=== PATIENT | male | born 1955 | race American Indian/Alaskan Native ===

== ENCOUNTER 2017-07-24 12:00 | Emergency (ER) | payer MEDICAID ==
[2017-07-24 12:51] LABS: Basophils % (Auto) 0.2 % (0.0-1.8); Eosinophils % (Auto) 1.8 % (0.0-4.3); Hematocrit 43.3 % (35.5-45.6); Hemoglobin 14.8 gm/dl (11.8-15.2); Mean Corpuscular HGB Conc 34 % (32-34); Mean Corpuscular Hemoglobin 30 pg (28-32); Mean Corpuscular Volume 88 fl (84-94); Platelet Count 227 K/mm3 (140-440); Red Blood Count 4.94 M/mm3 (3.65-5.03); Red Cell Distribution Width 12.8 % (13.2-15.2); White Blood Count 4.7 K/mm3 (4.5-11.0)
[2017-07-24 12:57] LABS: Anion Gap 19 mmol/L; BUN/Creatinine Ratio 12.85; Blood Urea Nitrogen 9 mg/dL (9-20); Carbon Dioxide 24 mmol/L (22-30); Chloride 92.6 mmol/L (98-107); Sodium 132 mmol/L (137-145)
[2017-07-24 13:18] LABS: Bilirubin,Urine NEG (Negative); Blood,Urine NEG (Negative); Ketones,Urine TR mg/dL (Negative); Leukocyte Esterase,Urine NEG (Negative); Mucus,Urine FEW /HPF; Nitrite,Urine NEG (Negative); Protein,Urine <15 mg/dL mg/dL (Negative); Urobilinogen,Urine < 2.0 mg/dL (<2.0); WBC,Urine < 1.0 /HPF (0.0-6.0)
[2017-07-24 13:21] LABS: Glucose 585 mg/dL (75-100)
[2017-07-24] MEDS ORDERED: NACL 0.9% 1000 ML 1,000 ML IV ONE ×2 (13:53)
--- NOTE | 2017-07-24 15:50 | Emergency Department Report ---
ED General Adult HPI - General Chief complaint: Hyperglycemia Stated complaint: HIGH BLOOD PRESSURE/SENT BY PHYS Time Seen by Provider: 07/24/17 13:52 Source: patient Mode of arrival: Ambulatory Limitations: No Limitations - History of Present Illness Initial comments: 61-year-old male with a past medical history CVA 2 and hypertension presents to the hospital with hypoglycemia secondary to new onset diabetes. Patient was referred to the ER for evaluation by his PMD Dr. Alfredo. Apparently his glucose was in the 700s prior to arrival. Patient received subcutaneous insulin prior to arrival was sent to the hospital for IV hydration and further treatment. Patient complains of polyuria increased thirst. He c/o mild diarrhea. No vomiting reported. No fever reported. Patient denies dysuria.ld not a Gatorade , Powerade, and water. He reports "stomach virus" symptoms 2 weeks ago that included cramps, low-grade temperature, and occasio - Related Data Home Medications Medication Instructions Recorded Confirmed Last Taken Baclofen 20 mg PO BID 02/26/16 03/04/16 03/03/16 Carvedilol [Coreg] 12.5 mg PO BID 02/26/16 03/04/16 03/03/16 Hydrochlorothiazide [Hctz] 12.5 mg PO QDAY 02/26/16 03/04/16 03/03/16 Lisinopril [Zestril] 20 mg PO QDAY 02/26/16 03/04/16 03/04/16 05:00 Sertraline [Zoloft] 50 mg PO QHS 02/26/16 03/04/16 03/03/16 Aspirin [Aspirin TAB] 325 mg PO QDAY 03/04/16 03/04/16 02/26/16 Warfarin [Coumadin] 2 mg PO BID 03/04/16 03/04/16 02/26/16 Previous Rx's Medication Instructions Recorded Last Taken Type HYDROcodone/APAP 10-325 [[place] 1 each PO Q6HR PRN #20 tablet 11/14/15 03/03/16 Rx 10/325] Allergies Allergy/AdvReac Type Severity Reaction Status Date / Time No Known Allergies Allergy Verified 07/24/17 12:17 ED Review of Systems ROS: Stated complaint: HIGH BLOOD PRESSURE/SENT BY PHYS Other details as noted in HPI Comment: All other systems reviewed and negative Other: Constitutional: No fevers chills Eyes: No eye pain visual changes ENT: No ear pain or throat pain Neck: Denies pain Respiratory: Denies cough wheezing shortness of breath Cardiovascular: Denies chest pain, palpitations, syncope GI: Denies abdominal pain, nausea, vomiting, diarrhea : as per hpi Musculoskeletal: Denies back pain, joint swelling Skin: Denies rash, lesions, erythema Neurologic: Denies headache, numbness, weakness Psychiatric: Denies suicidal ideation, hallucinations ED Past Medical Hx - Past Medical History Hx Hypertension: Yes Hx CVA: Yes (x2) Hx Heart Attack/AMI: No Hx GERD: No Hx Liver Disease: No Hx Renal Disease: No Hx Seizures: No Hx HIV: No - Surgical History Additional Surgical History: R Rotator cuff - Social History Smoking Status: Former Smoker Substance Use Type: None - Medications Home Medications: Home Medications Medication Instructions Recorded Confirmed Last Taken Type HYDROcodone/APAP 10-325 [[place] 1 each PO Q6HR PRN #20 tablet 11/14/15 03/04/16 03/03/16 Rx 10/325] Baclofen 20 mg PO BID 02/26/16 03/04/16 03/03/16 History Carvedilol [Coreg] 12.5 mg PO BID 02/26/16 03/04/16 03/03/16 History Hydrochlorothiazide [Hctz] 12.5 mg PO QDAY 02/26/16 03/04/16 03/03/16 History Lisinopril [Zestril] 20 mg PO QDAY 02/26/16 03/04/16 03/04/16 05:00 History Sertraline [Zoloft] 50 mg PO QHS 02/26/16 03/04/16 03/03/16 History Aspirin [Aspirin TAB] 325 mg PO QDAY 03/04/16 03/04/16 02/26/16 History Warfarin [Coumadin] 2 mg PO BID 03/04/16 03/04/16 02/26/16 History ED Physical Exam - General Limitations: No Limitations - Other Other exam information: General: No limitations, patient is alert in no acute distress Head exam: Atraumatic, normocephalic Eyes exam: Normal appearance, pupils equal reactive to light, extraocular movements intact ENT: Moist mucous membrane, normal oropharynx Neck exam: Normal inspection, full range of motion, no meningismus nontender Respiratory exam: Clear to auscultation bilateral, no wheezes, rales, crackles Cardiovascular: Normal rate and rhythm, normal heart sounds Abdomen: Soft, nondistended, and nontender, with normal bowel sounds, no rebound, or guarding Extremity: Full range of motion normal inspection no deformity Back: Normal Inspection, full range of motion, no tenderness Neurologic: Alert, oriented x3, cranial nerves intact, no motor or sensory deficit Psychiatric: normal affect, normal mood Skin: Warm, dry, intact ED Course Vital Signs 07/24/17 12:17 Temperature 98 F Pulse Rate 68 Respiratory 18 Rate Blood Pressure 124/88 O2 Sat by Pulse 100 Oximetry - Reevaluation(s) Reevaluation #1: 07/24/17 15:52 Patient received regular insulin 8 units and normal saline with reduction in blood pressures in the 120s. Patient given fluids E in additional 1 L initiated - Consultations Consultation #1: 07/24/17 Case d/w Dr Alfredo. He confirms that insulin was given prior to arrival (pt denies this). He also confirms that he has a prescription called into the patient's pharmacy for sliding-scale insulin, testing strips, and glucometer, and wants to see the patient in the office next week. ED Medical Decision Making - Lab Data Result diagrams: 07/24/17 12:28 07/24/17 12:28 Lab Results 07/24/17 07/24/17 07/24/17 Range/Units 12:28 12:28 12:28 WBC 4.7 (4.5-11.0) K/mm3 RBC 4.94 (3.65-5.03) M/mm3 Hgb 14.8 (11.8-15.2) gm/dl Hct 43.3 (35.5-45.6) % MCV 88 (84-94) fl MCH 30 (28-32) pg MCHC 34 (32-34) % RDW 12.8 L (13.2-15.2) % Plt Count 227 (140-440) K/mm3 Lymph % (Auto) 38.5 H (13.4-35.0) % [place] % (Auto) 7.9 H (0.0-7.3) % Eos % (Auto) 1.8 (0.0-4.3) % Baso % (Auto) 0.2 (0.0-1.8) % Lymph # 1.8 (1.2-5.4) K/mm3 [place] # 0.4 (0.0-0.8) K/mm3 Eos # 0.1 (0.0-0.4) K/mm3 Baso # 0.0 (0.0-0.1) K/mm3 Seg Neutrophils % 51.6 (40.0-70.0) % Seg Neutrophils # 2.4 (1.8-7.7) K/mm3 VBG pH 7.382 (7.320-7.420) Sodium 132 L (137-145) mmol/L Potassium 4.0 (3.6-5.0) mmol/L Chloride 92.6 L (98-107) mmol/L Carbon Dioxide 24 (22-30) mmol/L Anion Gap 19 mmol/L BUN 9 (9-20) mg/dL Creatinine 0.7 L (0.8-1.5) mg/dL Estimated GFR > 60 ml/min BUN/Creatinine Ratio 12.85 % Glucose 585 H* (75-100) mg/dL POC Glucose (70-105) Calcium 10.0 (8.4-10.2) mg/dL Urine Color (Yellow) Urine Turbidity (Clear) Urine pH (5.0-7.0) Ur Specific [place] (1.003-1.030) Urine Protein (Negative) mg/dL Urine Glucose (UA) (Negative) mg/dL Urine Ketones (Negative) mg/dL Urine Blood (Negative) Urine Nitrite (Negative) Urine Bilirubin (Negative) Urine Urobilinogen (<2.0) mg/dL Ur Leukocyte Esterase (Negative) Urine WBC (Auto) (0.0-6.0) /HPF Urine RBC (Auto) (0.0-6.0) /HPF Urine Mucus /HPF 07/24/17 07/24/17 07/24/17 Range/Units 13:07 14:03 15:14 WBC (4.5-11.0) K/mm3 RBC (3.65-5.03) M/mm3 Hgb (11.8-15.2) gm/dl Hct (35.5-45.6) % MCV (84-94) fl MCH (28-32) pg MCHC (32-34) % RDW (13.2-15.2) % Plt Count (140-440) K/mm3 Lymph % (Auto) (13.4-35.0) % [place] % (Auto) (0.0-7.3) % Eos % (Auto) (0.0-4.3) % Baso % (Auto) (0.0-1.8) % Lymph # (1.2-5.4) K/mm3 [place] # (0.0-0.8) K/mm3 Eos # (0.0-0.4) K/mm3 Baso # (0.0-0.1) K/mm3 Seg Neutrophils % (40.0-70.0) % Seg Neutrophils # (1.8-7.7) K/mm3 VBG pH (7.320-7.420) Sodium (137-145) mmol/L Potassium (3.6-5.0) mmol/L Chloride (98-107) mmol/L Carbon Dioxide (22-30) mmol/L Anion Gap mmol/L BUN (9-20) mg/dL Creatinine (0.8-1.5) mg/dL Estimated GFR ml/min BUN/Creatinine Ratio % Glucose (75-100) mg/dL POC Glucose 492 H 127 H (70-105) Calcium (8.4-10.2) mg/dL Urine Color Straw (Yellow) Urine Turbidity Clear (Clear) Urine pH 6.0 (5.0-7.0) Ur Specific [place] 1.033 H (1.003-1.030) Urine Protein <15 mg/dl (Negative) mg/dL Urine Glucose (UA) >=500 (Negative) mg/dL Urine Ketones Tr (Negative) mg/dL Urine Blood Neg (Negative) Urine Nitrite Neg (Negative) Urine Bilirubin Neg (Negative) Urine Urobilinogen < 2.0 (<2.0) mg/dL Ur Leukocyte Esterase Neg (Negative) Urine WBC (Auto) < 1.0 (0.0-6.0) /HPF Urine RBC (Auto) 1.0 (0.0-6.0) /HPF Urine Mucus Few /HPF - Medical Decision Making Patient has hyperglycemia without signs of DKA. Diagnoses nausea diabetes. That has already called in insulin script for the patient and wants to see the patient in the office again next week. Patient should be discharged once no [place] completed and glucose still within reasonable range less than 250 - Differential Diagnosis DKA, hyperglycemia, infection Critical Care Time: No Critical care attestation.: If time is entered above; I have spent that time in minutes in the direct care of this critically ill patient, excluding procedure time. ED Disposition Clinical Impression: Hyperglycemia, New onset type 2 diabetes mellitus Disposition: TO HOME OR SELFCARE Is pt being admited?: No Does the pt Need Aspirin: No Condition: Stable Instructions: Diabetes Mellitus Type 2 in Adults (ED) Additional Instructions: Continue to drink plenty of water. Avoid drinking liquids with sugar. Fill your prescription as prescribed by Dr. Alfredo. Return is symptoms worsen. Referrals: TYLER ALFREDO MD [Staff Physician] - 3-5 Days
[2017-07-24 16:33] VITALS: BP 100/64
== END 2017-07-24 16:27 | disposition home or self-care (01) ==
LOC: ED 12:00
DX: E11.65 Type 2 diabetes mellitus with hyperglycemia (principal); I10 Essential (primary) hypertension; Z86.73 Personal history of transient ischemic attack (TIA), and cerebral infarction without residual deficits; Z87.891 Personal history of nicotine dependence
CPT/HCPCS: 36415; 80048; 81001; 82805; 82962; 85025; 96361; 96374; 99284; J7030; J1815

== ENCOUNTER 2017-08-28 11:21 | Inpatient (IN) | payer MEDICAID ==
[2017-08-28] MEDS ORDERED: NACL 0.9% 1000 ML 1,000 ML IV ONE ×3 (11:59→14:33)
[2017-08-28] MEDS ORDERED: ZOFRAN IV ONE (12:00)
--- NOTE | 2017-08-28 12:04 | Emergency Department Report ---
ED General Adult HPI - General Chief complaint: Hyperglycemia Stated complaint: BLOOD PRESSURE HIGH Time Seen by Provider: 08/28/17 11:51 Source: patient Mode of arrival: Wheelchair Limitations: No Limitations - History of Present Illness Initial comments: Patient is 61 years old male recently diagnosed with diabetes this is his second visit this week for the same reason which is hyperglycemia nausea and vomiting. Patient was discharged from the ER with a prescription for insulin but patient stated that he is unable to fill his prescription because he does not have insurance. Patient stated that he does not much he doesn't know how much his blood sugar is high that he is having nausea vomiting no diarrhea this time. Denied any fever, chest pain, shortness of breath ,abdominal pain , weakness, numbness or tingling sensation. - Related Data Home Medications Medication Instructions Recorded Confirmed Last Taken Baclofen 20 mg PO BID 02/26/16 03/04/16 03/03/16 Carvedilol [Coreg] 12.5 mg PO BID 02/26/16 03/04/16 03/03/16 Hydrochlorothiazide [Hctz] 12.5 mg PO QDAY 02/26/16 03/04/16 03/03/16 Lisinopril [Zestril] 20 mg PO QDAY 02/26/16 03/04/16 03/04/16 05:00 Sertraline [Zoloft] 50 mg PO QHS 02/26/16 03/04/16 03/03/16 Aspirin [Aspirin TAB] 325 mg PO QDAY 03/04/16 03/04/16 02/26/16 Warfarin [Coumadin] 2 mg PO BID 03/04/16 03/04/16 02/26/16 Previous Rx's Medication Instructions Recorded Last Taken Type HYDROcodone/APAP 10-325 [[place] 1 each PO Q6HR PRN #20 tablet 11/14/15 03/03/16 Rx 10/325] Allergies Allergy/AdvReac Type Severity Reaction Status Date / Time No Known Allergies Allergy Verified 07/24/17 12:17 ED Review of Systems ROS: Stated complaint: BLOOD PRESSURE HIGH Other details as noted in HPI Comment: All other systems reviewed and negative Constitutional: denies: chills, fever Respiratory: denies: cough, shortness of breath, SOB with exertion Cardiovascular: denies: chest pain, palpitations Gastrointestinal: nausea, vomiting. denies: abdominal pain, diarrhea, hematemesis, melena, hematochezia Neurological: denies: headache, numbness, paresthesias ED Past Medical Hx - Past Medical History Previous Medical History?: Yes Hx Hypertension: Yes Hx CVA: Yes (x2) Hx Heart Attack/AMI: No Hx GERD: No Hx Liver Disease: No Hx Renal Disease: No Hx Seizures: No Hx HIV: No - Surgical History Past Surgical History?: Yes Additional Surgical History: R Rotator cuff - Social History Smoking Status: Never Smoker Substance Use Type: None - Medications Home Medications: Home Medications Medication Instructions Recorded Confirmed Last Taken Type HYDROcodone/APAP 10-325 [[place] 1 each PO Q6HR PRN #20 tablet 11/14/15 03/04/16 03/03/16 Rx 10/325] Baclofen 20 mg PO BID 02/26/16 03/04/16 03/03/16 History Carvedilol [Coreg] 12.5 mg PO BID 02/26/16 03/04/16 03/03/16 History Hydrochlorothiazide [Hctz] 12.5 mg PO QDAY 02/26/16 03/04/16 03/03/16 History Lisinopril [Zestril] 20 mg PO QDAY 02/26/16 03/04/16 03/04/16 05:00 History Sertraline [Zoloft] 50 mg PO QHS 02/26/16 03/04/16 03/03/16 History Aspirin [Aspirin TAB] 325 mg PO QDAY 03/04/16 03/04/16 02/26/16 History Warfarin [Coumadin] 2 mg PO BID 03/04/16 03/04/16 02/26/16 History ED Physical Exam - General Limitations: No Limitations General appearance: alert, in no apparent distress - Head Head exam: Present: normocephalic - Eye Eye exam: Present: normal appearance - ENT ENT exam: Present: mucous membranes dry, TM's normal bilaterally - Neck Neck exam: Present: normal inspection, full ROM. Absent: tenderness, meningismus, lymphadenopathy - Respiratory Respiratory exam: Present: normal lung sounds bilaterally. Absent: respiratory distress, wheezes, rales, rhonchi, stridor, chest wall tenderness, accessory muscle use, decreased breath sounds, prolonged expiratory - Cardiovascular Cardiovascular Exam: Present: regular rate, normal rhythm, normal heart sounds - GI/Abdominal GI/Abdominal exam: Present: soft, normal bowel sounds. Absent: tenderness, guarding, rebound, rigid, organomegaly, mass, bruit, pulsatile mass, hernia - Extremities Exam Extremities exam: Present: normal inspection - Back Exam Back exam: Present: normal inspection. Absent: tenderness, CVA tenderness (R), CVA tenderness (L) - Neurological Exam Neurological exam: Present: alert, oriented X3, CN II-XII intact, normal gait. Absent: abnormal gait, motor sensory deficit - Skin Skin exam: Present: warm, dry, intact ED Course Vital Signs 08/28/17 08/28/17 08/28/17 11:30 12:55 13:08 Temperature 97.6 F Pulse Rate 85 Respiratory 20 18 Rate Blood Pressure 82/44 O2 Sat by Pulse 98 99 100 Oximetry - Reevaluation(s) Reevaluation #1: 08/28/17 13:00 Patient stated that he is feeling better after the fluids. ED Medical Decision Making - Lab Data Result diagrams: 08/28/17 11:50 08/28/17 11:50 - EKG Data -: EKG Interpreted by Oh EKG shows normal: sinus rhythm Rate: normal - EKG Data 08/28/17 13:11 RBBB - Radiology Data Radiology results: report reviewed Chest x-ray unremarkable - Medical Decision Making Discussed the patient is Dr. Townsend who agreed to admit to his service Critical care attestation.: If time is entered above; I have spent that time in minutes in the direct care of this critically ill patient, excluding procedure time. ED Disposition Clinical Impression: Hyperglycemia, Hyponatremia, Intractable vomiting with nausea Disposition: OP ADMIT IP TO THIS HOSP Is pt being admited?: Yes Condition: Stable Referrals: PRIMARY CARE, [Primary Care Provider] - 3-5 Days
[2017-08-28 12:18] LABS: Basophils % (Auto) 1.8 % (0.0-1.8); Eosinophils % (Auto) 2.5 % (0.0-4.3); Hemoglobin 14.2 gm/dl (11.8-15.2); Mean Corpuscular HGB Conc 34 % (32-34); Mean Corpuscular Hemoglobin 30 pg (28-32); Mean Corpuscular Volume 90 fl (84-94); Platelet Count 225 K/mm3 (140-440); Red Blood Count 4.67 M/mm3 (3.65-5.03); Red Cell Distribution Width 12.9 % (13.2-15.2)
--- NOTE | 2017-08-28 12:18 | XRay Report ---
PORTABLE CHEST: Chest pain. An AP portable view of the chest demonstrates a normal cardiac contour considering the limits of this technique. The lungs are clear with no evidence of infiltrate, fluid or failure. IMPRESSION: Normal portable chest.
[2017-08-28 12:33] LABS: Calcium 9.2 mg/dL (8.4-10.2); Chloride 77.6 mmol/L (98-107); Potassium 5.1 mmol/L (3.6-5.0)
[2017-08-28 13:26] LABS: Bilirubin,Urine NEG (Negative); Blood,Urine NEG (Negative); Ketones,Urine TR mg/dL (Negative); Leukocyte Esterase,Urine NEG (Negative); Mucus,Urine FEW /HPF; Nitrite,Urine NEG (Negative); Protein,Urine <15 mg/dL mg/dL (Negative); Urobilinogen,Urine < 2.0 mg/dL (<2.0)
[2017-08-28 13:55] LABS: Albumin 3.9 g/dL (3.9-5); Albumin/Globulin Ratio 1.2 %; Bilirubin,Direct 0.2 mg/dL (0-0.2); Bilirubin,Indirect 0.8 mg/dL; Total Protein 7.2 g/dL (6.3-8.2)
[2017-08-28] MEDS ORDERED: NACL 0.9% 1000 ML 1,000 ML ONE (13:58)
[2017-08-28] MEDS: NACL 0.9% 1000 ML 1,000 ML IV SCH (15:56)
[2017-08-28 18:13] LABS: Calcium 8.5 mg/dL (8.4-10.2); Chloride 92.8 mmol/L (98-107); Potassium 4.5 mmol/L (3.6-5.0)
[2017-08-28] MEDS ORDERED: NACL 0.9% 1000 ML 1,000 ML IV SCH (19:00)
[2017-08-28] MEDS ORDERED: ZOFRAN ODT ONE (19:25)
[2017-08-28] MEDS ORDERED: ZOFRAN ODT PO ONE (19:39)
--- NOTE | 2017-08-28 19:47 | History and Physical Report ---
History of Present Illness Date of examination: 08/28/17 Date of admission: 08/28/17 13:02 Chief complaint: Chief complaint: Feeling very weak and nauseous for one week. History of present illness: History of present illness: 61-year-old -British male with past medical history of hypertension depression and recently diagnosed diabetes about a month ago comes in for feeling very weak and nauseous. Also his blood sugars have been running high in the range of 300-400. Patient was asked to fill her prescription by his PCP and because the prescription being expensive patient could not fill it. Patient was trying to control his diabetes with diet. Says that blood sugars dropped to around 180 and then again started creeping up to around 400 recently. Patient was seen in the ER and discharged. Patient does not know the name of the hypoglycemics and was put on. Feels weak and nauseous. No fever no chills. Slight shortness of breath present. Blurring of vision present. No dysuria. No recent travel. No chest pain. No abdominal pain. Review of System: Constitutional: no fever, no chills, no weight loss feels weak and nauseous. Ears, eyes, nose, mouth and throat: no nasal congestion, no nasal discharge, no sinus pressure, no vision change, no red eye. Neck: No neck pain or rigidity. Cardiovascular: No chest pain, no orthopnea, no palpitations, no leg swelling Respiratory: No shortness of breath, no cough, no congestion, no wheezing Gastrointestinal: no abdominal pain, nausea present, no vomiting Genitourinary : no dysuria, no hematuria or polyuria polydipsia and polyphagia present. Musculoskeletal: no joint swelling or muscle ache Integumentary: no rash, no pruritis Neurological: no parathesias, no numbness, no tingling Endocrine: no cold or heat intolerance, no polyuria or polydipsia Hematologic/Lymphatic: no easy bruising, no easy bleeding, no gland swelling Allergic/Immunologic: no urticaria, no angioedema. Past History Past Medical History: diabetes, hypertension, hyperlipidemia, stroke (with complete recovery) Past Surgical History: No surgical history Social history: no significant social history, lives with family, full code Family history: diabetes, hypertension Medications and Allergies Allergies Allergy/AdvReac Type Severity Reaction Status Date / Time No Known Allergies Allergy Verified 07/24/17 12:17 Home Medications Medication Instructions Recorded Confirmed Last Taken Type HYDROcodone/APAP 10-325 [[place] 1 each PO Q6HR PRN #20 tablet 11/14/15 08/28/17 03/03/16 Rx 10/325] Carvedilol [Coreg] 12.5 mg PO BID 02/26/16 08/28/17 08/28/17 History Hydrochlorothiazide [Hctz] 12.5 mg PO QDAY 02/26/16 08/28/17 08/28/17 History Lisinopril [Zestril] 20 mg PO QDAY 02/26/16 08/28/17 08/28/17 History Sertraline [Zoloft] 50 mg PO QHS 02/26/16 08/28/17 08/27/17 History Aspirin [Aspirin TAB] 325 mg PO QDAY 03/04/16 08/28/17 08/28/17 History Warfarin [Coumadin] 2 mg PO BID 03/04/16 08/28/17 08/28/17 History Active Meds: Active Medications Sodium Chloride (Nacl 0.9% 1000 Ml) 1,000 mls @ 150 mls/hr IV DIRECT DOMINGO Last Admin: 08/28/17 15:56 Dose: 150 mls/hr Sodium Chloride (Nacl 0.9% 1000 Ml) 1,000 mls @ 250 mls/hr IV DIRECT DOMINGO Review of Systems All systems: negative Exam - Physical Exam Narrative exam: Lying in bed comfortably - Constitutional Vitals: Temp Pulse Resp BP Pulse Ox 98 F 66 18 90/46 100 08/28/17 19:40 08/28/17 19:40 08/28/17 19:40 08/28/17 19:40 08/28/17 19:40 General appearance: Present: no acute distress, well-nourished - EENT Eyes: Present: PERRL ENT: hearing intact, clear oral mucosa - Neck Neck: Present: supple, normal ROM - Respiratory Respiratory effort: normal Respiratory: bilateral: CTA - Cardiovascular Heart rate: 80 Rhythm: regular (88) Heart Sounds: Present: S1 & S2. Absent: rub, click - Extremities Extremities: pulses symmetrical, No edema Peripheral Pulses: within normal limits - Abdominal General gastrointestinal: Present: soft, non-tender, non-distended, normal bowel sounds Male genitourinary: Present: normal. Absent: right inguinal hernia, left inguinal hernia - Rectal Rectal Exam: stool brown - Integumentary Integumentary: Present: clear, warm, dry - Musculoskeletal Musculoskeletal: gait normal, strength equal bilaterally - Psychiatric Psychiatric: appropriate mood/affect, intact judgment & insight - Neurologic Neurologic: CNII-XII intact, moves all extremities - Allied Health Allied health notes reviewed: nursing, case management Results - Labs CBC & Chem 7: 08/28/17 11:50 08/28/17 17:50 Labs: Laboratory Last Values WBC 8.0 K/mm3 (4.5-11.0) 08/28/17 11:50 RBC 4.67 M/mm3 (3.65-5.03) 08/28/17 11:50 Hgb 14.2 gm/dl (11.8-15.2) 08/28/17 11:50 Hct 42.0 % (35.5-45.6) 08/28/17 11:50 MCV 90 fl (84-94) 08/28/17 11:50 MCH 30 pg (28-32) 08/28/17 11:50 MCHC 34 % (32-34) 08/28/17 11:50 RDW 12.9 % (13.2-15.2) L 08/28/17 11:50 Plt Count 225 K/mm3 (140-440) 08/28/17 11:50 Lymph % (Auto) 21.5 % (13.4-35.0) 08/28/17 11:50 [place] % (Auto) 8.2 % (0.0-7.3) H 08/28/17 11:50 Eos % (Auto) 2.5 % (0.0-4.3) 08/28/17 11:50 Baso % (Auto) 1.8 % (0.0-1.8) 08/28/17 11:50 Lymph # 1.7 K/mm3 (1.2-5.4) 08/28/17 11:50 [place] # 0.7 K/mm3 (0.0-0.8) 08/28/17 11:50 Eos # 0.2 K/mm3 (0.0-0.4) 08/28/17 11:50 Baso # 0.1 K/mm3 (0.0-0.1) 08/28/17 11:50 Seg Neutrophils % 66.0 % (40.0-70.0) 08/28/17 11:50 Seg Neutrophils # 5.3 K/mm3 (1.8-7.7) 08/28/17 11:50 VBG pH 7.351 (7.320-7.420) 08/28/17 11:50 Sodium 131 mmol/L (137-145) L D 08/28/17 17:50 Potassium 4.5 mmol/L (3.6-5.0) 08/28/17 17:50 Chloride 92.8 mmol/L (98-107) L 08/28/17 17:50 Carbon Dioxide 22 mmol/L (22-30) 08/28/17 17:50 Anion Gap 21 mmol/L 08/28/17 17:50 BUN 30 mg/dL (9-20) H 08/28/17 17:50 Creatinine 1.9 mg/dL (0.8-1.5) H 08/28/17 17:50 Estimated GFR 44 ml/min 08/28/17 17:50 BUN/Creatinine Ratio 16 % 08/28/17 17:50 Glucose 164 mg/dL (75-100) H 08/28/17 17:50 POC Glucose > 500 (70-105) H 08/28/17 11:30 Calcium 8.5 mg/dL (8.4-10.2) 08/28/17 17:50 Total Bilirubin 1.00 mg/dL (0.1-1.2) 08/28/17 12:01 Direct Bilirubin 0.2 mg/dL (0-0.2) 08/28/17 12:01 Indirect Bilirubin 0.8 mg/dL 08/28/17 12:01 AST 16 units/L (5-40) 08/28/17 12:01 ALT 15 units/L (7-56) 08/28/17 12:01 Alkaline Phosphatase 86 units/L (35-129) 08/28/17 12:01 Troponin T 0.021 ng/mL (0.00-0.029) 08/28/17 12:01 Total Protein 7.2 g/dL (6.3-8.2) 08/28/17 12:01 Albumin 3.9 g/dL (3.9-5) 08/28/17 12:01 Albumin/Globulin Ratio 1.2 % 08/28/17 12:01 Urine Color Yellow (Yellow) 08/28/17 12:10 Urine Turbidity Clear (Clear) 08/28/17 12:10 Urine pH 5.0 (5.0-7.0) 08/28/17 12:10 Ur Specific [place] 1.022 (1.003-1.030) 08/28/17 12:10 Urine Protein <15 mg/dl mg/dL (Negative) 08/28/17 12:10 Urine Glucose (UA) >=500 mg/dL (Negative) 08/28/17 12:10 Urine Ketones Tr mg/dL (Negative) 08/28/17 12:10 Urine Blood Neg (Negative) 08/28/17 12:10 Urine Nitrite Neg (Negative) 08/28/17 12:10 Urine Bilirubin Neg (Negative) 08/28/17 12:10 Urine Urobilinogen < 2.0 mg/dL (<2.0) 08/28/17 12:10 Ur Leukocyte Esterase Neg (Negative) 08/28/17 12:10 Urine WBC (Auto) 1.0 /HPF (0.0-6.0) 08/28/17 12:10 Urine RBC (Auto) 3.0 /HPF (0.0-6.0) 08/28/17 12:10 Urine Mucus Few /HPF 08/28/17 12:10 Short CBC 08/28/17 Range/Units 11:50 WBC 8.0 (4.5-11.0) K/mm3 Hgb 14.2 (11.8-15.2) gm/dl Hct 42.0 (35.5-45.6) % Plt Count 225 (140-440) K/mm3 BMP 08/28/17 08/28/17 11:50 17:50 Sodium 119 L* 131 L D Potassium 5.1 H 4.5 Chloride 77.6 L 92.8 L Carbon Dioxide 22 22 BUN 34 H 30 H Creatinine 2.4 H 1.9 H Glucose 713 H* 164 H Calcium 9.2 8.5 Cardiac Enzymes 08/28/17 Range/Units 12:01 Troponin T 0.021 (0.00-0.029) ng/mL Liver Function 08/28/17 Range/Units 12:01 Total Bilirubin 1.00 (0.1-1.2) mg/dL Direct Bilirubin 0.2 (0-0.2) mg/dL AST 16 (5-40) units/L ALT 15 (7-56) units/L Alkaline Phosphatase 86 (35-129) units/L Albumin 3.9 (3.9-5) g/dL Urine 08/28/17 Range/Units 12:10 Urine Color Yellow (Yellow) Urine pH 5.0 (5.0-7.0) Ur Specific [place] 1.022 (1.003-1.030) Urine Protein <15 mg/dl (Negative) mg/dL Urine Glucose (UA) >=500 (Negative) mg/dL - Imaging and Cardiology EKG: report reviewed (normal portable chest x-ray) Assessment and Plan Advance Directives: Yes (full code) VTE prophylaxis?: Chemical Plan of care discussed with patient/family: Yes - Patient Problems (1) Diabetic hyperosmolar non-ketotic state Current Visit: Yes Status: Acute Plan to address problem: Patient was diagnosed one month ago and was started on oral hypoglycemics. Patient may have been started on expensive old hypoglycemics like DPP 4 inhibitor or SGLT like Invokana/Farxiga and patient could not afford it and hence not taking them. We will start him on glimepiride which is not expensive and metformin if Creatinine is normal at the time of discharge. If the sugars are not controlled we will add nighttime insulin like Lantus at 20 units subcutaneous daily at bedtime. Also diabetes teaching initiated. Dietary consult requested. HbA1c ordered. Patient to follow-up with the PCP Dr. Zhao on a regular basis. Walking on a regular basis which helps his diabetes. Patient counseled. IV fluids and frequent monitoring of Accu-Cheks with moderate dose sliding scale coverage for the time being. (2) Acute kidney injury Current Visit: Yes Status: Acute Plan to address problem: His BUN/creatinine is 34 and 2.4. Has come down to 30 and 1.9 on the same day with IV fluids. Probably acute tubular necrosis versus possible vasomotor nephropathy. Keep checking BUN/creatinine. Metformin to be initiated if her creatinine is normal. (3) Intractable vomiting with nausea Current Visit: Yes Status: Acute Qualifiers: Vomiting type: unspecified Qualified Code(s): R11.2 - Nausea with vomiting , unspecified Plan to address problem: Symptomatic treatment with IV Zofran and also IV fluids. Should improve with the improving blood glucose levels (4) Hyponatremia Current Visit: Yes Status: Acute Plan to address problem: Hyponatremia secondary to blood glucose levels of 700. Should correct with correction of blood glucose and IV fluids. Patient started on IV normal saline. (5) Hypertension Current Visit: Yes Status: Chronic Qualifiers: Hypertension type: essential hypertension Qualified Code(s): I10 - Essential (primary) hypertension Plan to address problem: Patient to continue Coreg and lisinopril. Blood pressure was low initially in the ER which is corrected with IV fluids. We will hold the blood pressure medicines for one day. (6) Depression Current Visit: Yes Status: Chronic Qualifiers: Depression Type: D Major depression recurrence: M Active/Remission status : A Major depression episode severity: moderate Psychotic features: P Trimester: T Plan to address problem: Continue sertraline 50 mg by mouth daily at bedtime (7) Anticoagulation management encounter Current Visit: Yes Status: Chronic Plan to address problem: Patient on Coumadin 2 mg twice a day. Patient does not know the reason. Called his sister were could not get in touch with her after [phone]. We' ll try to call her tomorrow again and find out why she is on his on Coumadin. Patient has a history of stroke from which is recovered completely. Mainly is using Coumadin for stroke. We will change it to aspirin 325 mg once a day at time of discharge. All Plavix 75 mg once a day. (8) DVT prophylaxis Current Visit: Yes Status: Acute Plan to address problem: Patient initiated on Lovenox 40 mg subcutaneous daily
[2017-08-28] MEDS ORDERED: NORCO 10/325 PO PRN (19:53)
[2017-08-28] MEDS ORDERED: TYLENOL PO PRN (19:54)
[2017-08-28] MEDS ORDERED: MILK OF MAGNESIA PO PRN (19:54)
[2017-08-28] MEDS ORDERED: ZOFRAN IV PRN (19:54)
[2017-08-28] MEDS ORDERED: DILAUDID IV PRN (19:54)
[2017-08-28] MEDS ORDERED: DULCOLAX PR PRN (19:54)
[2017-08-28] MEDS: NOVOLOG SUB-Q SCH ×2 (22:00→22:42)
[2017-08-28] MEDS: PEPCID IV SCH (22:30)
[2017-08-28] MEDS: ASPIRIN PO SCH (22:30)
[2017-08-28] MEDS: ZOLOFT PO SCH (22:30)
[2017-08-28] MEDS: LEVEMIR SUB-Q SCH (22:31)
[2017-08-28] MEDS: HEPARIN SUB-Q SCH (22:31)
[2017-08-28] MEDS: COREG PO SCH (22:42)
[2017-08-29] MEDS: NACL 0.9% 1000 ML 1,000 ML IV SCH ×2 (01:51→06:46)
[2017-08-29 05:34] LABS: Basophils % (Auto) 1.1 % (0.0-1.8); Eosinophils % (Auto) 3.7 % (0.0-4.3); Hemoglobin 12.4 gm/dl (11.8-15.2); Mean Corpuscular HGB Conc 36 % (32-34); Mean Corpuscular Hemoglobin 31 pg (28-32); Mean Corpuscular Volume 86 fl (84-94); Platelet Count 189 K/mm3 (140-440); Red Blood Count 4.05 M/mm3 (3.65-5.03); Red Cell Distribution Width 12.6 % (13.2-15.2); White Blood Count 7.1 K/mm3 (4.5-11.0)
[2017-08-29 05:44] LABS: Alanine Aminotransferase 12 units/L (7-56); Albumin 3.3 g/dL (3.9-5); Albumin/Globulin Ratio 1.2 %; Alkaline Phosphatase 62 units/L (35-129); Anion Gap 19 mmol/L; BUN/Creatinine Ratio 18; Blood Urea Nitrogen 24 mg/dL (9-20); Calcium 8.4 mg/dL (8.4-10.2); Carbon Dioxide 21 mmol/L (22-30); Glucose 164 mg/dL (75-100); Potassium 4.2 mmol/L (3.6-5.0); Sodium 133 mmol/L (137-145); Total Protein 6.1 g/dL (6.3-8.2)
[2017-08-29] MEDS: NOVOLOG SUB-Q SCH ×6 (06:44→21:42)
[2017-08-29] MEDS: HEPARIN SUB-Q SCH ×2 (10:00→21:43)
[2017-08-29] MEDS: ASPIRIN PO SCH (10:28)
[2017-08-29] MEDS: ZESTRIL PO SCH (10:28)
[2017-08-29] MEDS: COREG PO SCH ×2 (10:28→23:00)
[2017-08-29] MEDS: HCTZ PO SCH (10:29)
[2017-08-29] MEDS: PEPCID IV SCH ×2 (10:29→21:40)
[2017-08-29] MEDS: AMARYL PO SCH (10:35)
--- NOTE | 2017-08-29 10:48 | Progress Note ---
Assessment and Plan Assessment and plan: History of present illness: 61-year-old -[place] male with past medical history of hypertension depression and recently diagnosed diabetes about a month ago comes in for feeling very weak and nauseous. Also his blood sugars have been running high in the range of 300-400. Patient was asked to fill her prescription by his PCP and because the prescription being expensive patient could not fill it. Patient was trying to control his diabetes with diet. Says that blood sugars dropped to around 180 and then again started creeping up to around 400 recently. Patient was seen in the ER and discharged. Patient does not know the name of the hypoglycemics and was put on. Feels weak and nauseous. No fever no chills. Slight shortness of breath present. Blurring of vision present. No dysuria. No recent travel. No chest pain. No abdominal pain. (1) Diabetic hyperosmolar non-ketotic state Current Visit: Yes Status: Acute Plan to address problem: Patient was diagnosed one month ago and was started on oral hypoglycemics. Patient may have been started on expensive old hypoglycemics like DPP 4 inhibitor or SGLT like Invokana/Farxiga and patient could not afford it and hence not taking them. We will start him on glimepiride which is not expensive and metformin if Creatinine is normal at the time of discharge. If the sugars are not controlled we will add nighttime insulin like Lantus at 20 units subcutaneous daily at bedtime. Also diabetes teaching initiated. Dietary consult requested. HbA1c ordered. Patient to follow-up with the PCP Dr. Zhao on a regular basis. Walking on a regular basis which helps his diabetes. Patient counseled. IV fluids and frequent monitoring of Accu-Cheks with moderate dose sliding scale coverage for the time being. (2) Acute kidney injury Current Visit: Yes Status: Acute Plan to address problem: His BUN/creatinine is 34 and 2.4. Has come down to 30 and 1.9 on the same day with IV fluids. Probably acute tubular necrosis versus possible vasomotor nephropathy. Keep checking BUN/creatinine. Metformin to be initiated if her creatinine is normal. (3) Intractable vomiting with nausea Current Visit: Yes Status: Acute Qualifiers: Vomiting type: unspecified Qualified Code(s): R11.2 - Nausea with vomiting , unspecified Plan to address problem: Symptomatic treatment with IV Zofran and also IV fluids. Should improve with the improving blood glucose levels (4) Hyponatremia Current Visit: Yes Status: Acute Plan to address problem: Hyponatremia secondary to blood glucose levels of 700. Should correct with correction of blood glucose and IV fluids. Patient started on IV normal saline. (5) Hypertension Current Visit: Yes Status: Chronic Qualifiers: Hypertension type: essential hypertension Qualified Code(s): I10 - Essential (primary) hypertension Plan to address problem: Patient to continue Coreg and lisinopril. Blood pressure was low initially in the ER which is corrected with IV fluids. We will hold the blood pressure medicines for one day. (6) Depression Current Visit: Yes Status: Chronic Qualifiers: Depression Type: D Major depression recurrence: M Active/Remission status : A Major depression episode severity: moderate Psychotic features: P Trimester: T Plan to address problem: Continue sertraline 50 mg by mouth daily at bedtime (7) Anticoagulation management encounter Current Visit: Yes Status: Chronic Plan to address problem: Patient on Coumadin 2 mg twice a day. Patient does not know the reason. Called his sister were could not get in touch with her after [phone]. We' ll try to call her tomorrow again and find out why she is on his on Coumadin. Patient has a history of stroke from which is recovered completely. Mainly is using Coumadin for stroke. We will change it to aspirin 325 mg once a day at time of discharge. All Plavix 75 mg once a day. (8) DVT prophylaxis Current Visit: Yes Status: Acute Plan to address problem: Patient initiated on Lovenox 40 mg subcutaneous daily A1c >20 Moderate Malnutrition; brand protection manager consult Hospitalist Physical - Constitutional Vitals: Temp Pulse Resp BP Pulse Ox 98.0 F 56 L 18 91/48 98 08/29/17 04:52 08/29/17 04:52 08/29/17 04:52 08/29/17 04:52 08/29/17 04:52 General appearance: Present: no acute distress, well-nourished Results - Labs CBC & Chem 7: 08/29/17 04:30 08/29/17 04:30 Labs: Laboratory Last Values WBC 7.1 K/mm3 (4.5-11.0) 08/29/17 04:30 RBC 4.05 M/mm3 (3.65-5.03) 08/29/17 04:30 Hgb 12.4 gm/dl (11.8-15.2) 08/29/17 04:30 Hct 35.0 % (35.5-45.6) L D 08/29/17 04:30 MCV 86 fl (84-94) 08/29/17 04:30 MCH 31 pg (28-32) 08/29/17 04:30 MCHC 36 % (32-34) H 08/29/17 04:30 RDW 12.6 % (13.2-15.2) L 08/29/17 04:30 Plt Count 189 K/mm3 (140-440) 08/29/17 04:30 Lymph % (Auto) 42.8 % (13.4-35.0) H 08/29/17 04:30 [place] % (Auto) 5.2 % (0.0-7.3) 08/29/17 04:30 Eos % (Auto) 3.7 % (0.0-4.3) 08/29/17 04:30 Baso % (Auto) 1.1 % (0.0-1.8) 08/29/17 04:30 Lymph # 3.0 K/mm3 (1.2-5.4) 08/29/17 04:30 [place] # 0.4 K/mm3 (0.0-0.8) 08/29/17 04:30 Eos # 0.3 K/mm3 (0.0-0.4) 08/29/17 04:30 Baso # 0.1 K/mm3 (0.0-0.1) 08/29/17 04:30 Seg Neutrophils % 47.2 % (40.0-70.0) 08/29/17 04:30 Seg Neutrophils # 3.4 K/mm3 (1.8-7.7) 08/29/17 04:30 VBG pH 7.351 (7.320-7.420) 08/28/17 11:50 Sodium 133 mmol/L (137-145) L 08/29/17 04:30 Potassium 4.2 mmol/L (3.6-5.0) 08/29/17 04:30 Chloride 97.0 mmol/L (98-107) L 08/29/17 04:30 Carbon Dioxide 21 mmol/L (22-30) L 08/29/17 04:30 Anion Gap 19 mmol/L 08/29/17 04:30 BUN 24 mg/dL (9-20) H 08/29/17 04:30 Creatinine 1.3 mg/dL (0.8-1.5) 08/29/17 04:30 Estimated GFR > 60 ml/min 08/29/17 04:30 BUN/Creatinine Ratio 18 % 08/29/17 04:30 Glucose 164 mg/dL (75-100) H 08/29/17 04:30 POC Glucose 148 (70-105) H 08/29/17 07:33 Hemoglobin A1c > 20.1 % (4-6) H 08/28/17 20:27 Calcium 8.4 mg/dL (8.4-10.2) 08/29/17 04:30 Total Bilirubin 0.90 mg/dL (0.1-1.2) 08/29/17 04:30 Direct Bilirubin 0.2 mg/dL (0-0.2) 08/28/17 12:01 Indirect Bilirubin 0.8 mg/dL 08/28/17 12:01 AST 14 units/L (5-40) 08/29/17 04:30 ALT 12 units/L (7-56) 08/29/17 04:30 Alkaline Phosphatase 62 units/L (35-129) 08/29/17 04:30 Troponin T 0.021 ng/mL (0.00-0.029) 08/28/17 12:01 Total Protein 6.1 g/dL (6.3-8.2) L 08/29/17 04:30 Albumin 3.3 g/dL (3.9-5) L 08/29/17 04:30 Albumin/Globulin Ratio 1.2 % 08/29/17 04:30 Urine Color Yellow (Yellow) 08/28/17 12:10 Urine Turbidity Clear (Clear) 08/28/17 12:10 Urine pH 5.0 (5.0-7.0) 08/28/17 12:10 Ur Specific [place] 1.022 (1.003-1.030) 08/28/17 12:10 Urine Protein <15 mg/dl mg/dL (Negative) 08/28/17 12:10 Urine Glucose (UA) >=500 mg/dL (Negative) 08/28/17 12:10 Urine Ketones Tr mg/dL (Negative) 08/28/17 12:10 Urine Blood Neg (Negative) 08/28/17 12:10 Urine Nitrite Neg (Negative) 08/28/17 12:10 Urine Bilirubin Neg (Negative) 08/28/17 12:10 Urine Urobilinogen < 2.0 mg/dL (<2.0) 08/28/17 12:10 Ur Leukocyte Esterase Neg (Negative) 08/28/17 12:10 Urine WBC (Auto) 1.0 /HPF (0.0-6.0) 08/28/17 12:10 Urine RBC (Auto) 3.0 /HPF (0.0-6.0) 08/28/17 12:10 Urine Mucus Few /HPF 08/28/17 12:10
[2017-08-29] MEDS ORDERED: Fluarix Quad 2017-2018(36 MOS+) IM ONE (12:00)
[2017-08-29] MEDS ORDERED: PNEUMOVAX 23 IM ONE (12:00)
[2017-08-29] MEDS: GLUCOPHAGE PO SCH (19:27)
[2017-08-29] MEDS: ZOLOFT PO SCH (21:40)
[2017-08-29] MEDS: LEVEMIR SUB-Q SCH (21:43)
[2017-08-30] MEDS: NOVOLOG SUB-Q SCH ×5 (03:00→14:16)
[2017-08-30 04:54] VITALS: BP 113/56
[2017-08-30] MEDS: GLUCOPHAGE PO SCH (09:35)
[2017-08-30] MEDS: HEPARIN SUB-Q SCH (09:36)
[2017-08-30] MEDS: AMARYL PO SCH (09:36)
[2017-08-30] MEDS: HCTZ PO SCH (09:36)
[2017-08-30] MEDS: PEPCID IV SCH (09:36)
[2017-08-30] MEDS: ASPIRIN PO SCH (09:36)
[2017-08-30] MEDS: COREG PO SCH (09:36)
[2017-08-30] MEDS: NACL 0.9% 1000 ML 1,000 ML IV SCH (09:39)
[2017-08-30] MEDS: ZESTRIL PO SCH (09:39)
--- NOTE | 2017-08-30 14:22 | Discharge Summary ---
Providers - Providers Date of Admission: 08/28/17 13:02 Attending physician: ROSALINDA GARCIA MD 08/28/17 20:24 Consult to Dietitian/Nutrition [CONS] Routine Physician Instructions: Reason For Exam: Reason for Consult: Diet education Primary care physician: [facility] [facility] Hospitalization Condition: Stable Hospital course: History of present illness: 61-year-old -[place] male with past medical history of hypertension depression and recently diagnosed diabetes about a month ago comes in for feeling very weak and nauseous. Also his blood sugars have been running high in the range of 300-400. Patient was asked to fill her prescription by his PCP and because the prescription being expensive patient could not fill it. Patient was trying to control his diabetes with diet. Says that blood sugars dropped to around 180 and then again started creeping up to around 400 recently. Patient was seen in the ER and discharged. Patient does not know the name of the hypoglycemics and was put on. Feels weak and nauseous. No fever no chills. Slight shortness of breath present. Blurring of vision present. No dysuria. No recent travel. No chest pain. No abdominal pain. (1) Diabetic hyperosmolar non-ketotic state Current Visit: Yes Status: Acute Plan to address problem: Patient was diagnosed one month ago and was started on oral hypoglycemics. Patient may have been started on expensive old hypoglycemics like DPP 4 inhibitor or SGLT like Invokana/Farxiga and patient could not afford it and hence not taking them. We will start him on glimepiride which is not expensive and metformin if Creatinine is normal at the time of discharge. If the sugars are not controlled we will add nighttime insulin like Lantus at 20 units subcutaneous daily at bedtime. Also diabetes teaching initiated. Dietary consult requested. HbA1c ordered. Patient to follow-up with the PCP Dr. Zhao on a regular basis. Walking on a regular basis which helps his diabetes. Patient counseled. IV fluids and frequent monitoring of Accu-Cheks with moderate dose sliding scale coverage for the time being. (2) Acute kidney injury Current Visit: Yes Status: Acute Plan to address problem: His BUN/creatinine is 34 and 2.4. Has come down to 30 and 1.9 on the same day with IV fluids. Probably acute tubular necrosis versus possible vasomotor nephropathy. Keep checking BUN/creatinine. Metformin to be initiated if her creatinine is normal. (3) Intractable vomiting with nausea Current Visit: Yes Status: Acute Qualifiers: Vomiting type: unspecified Qualified Code(s): R11.2 - Nausea with vomiting , unspecified Plan to address problem: Symptomatic treatment with IV Zofran and also IV fluids. Should improve with the improving blood glucose levels (4) Hyponatremia Current Visit: Yes Status: Acute Plan to address problem: Hyponatremia secondary to blood glucose levels of 700. Should correct with correction of blood glucose and IV fluids. Patient started on IV normal saline. (5) Hypertension Current Visit: Yes Status: Chronic Qualifiers: Hypertension type: essential hypertension Qualified Code(s): I10 - Essential (primary) hypertension Plan to address problem: Patient to continue Coreg and lisinopril. Blood pressure was low initially in the ER which is corrected with IV fluids. We will hold the blood pressure medicines for one day. (6) Depression Current Visit: Yes Status: Chronic Qualifiers: Depression Type: D Major depression recurrence: M Active/Remission status : A Major depression episode severity: moderate Psychotic features: P Trimester: T Plan to address problem: Continue sertraline 50 mg by mouth daily at bedtime (7) Anticoagulation management encounter Current Visit: Yes Status: Chronic Plan to address problem: Patient on Coumadin 2 mg twice a day. Patient does not know the reason. Called his sister were could not get in touch with her after [phone]. We' ll try to call her tomorrow again and find out why she is on his on Coumadin. Patient has a history of stroke from which is recovered completely. Mainly is using Coumadin for stroke. We will change it to aspirin 325 mg once a day at time of discharge. All Plavix 75 mg once a day. 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 Disposition: - TO HOME OR SELFCARE Time spent for discharge: 33 minutes Core Measure Documentation - Palliative Care Palliative Care/ Comfort Measures: Not Applicable - Core Measures Any of the following diagnoses?: none Exam - Constitutional Vitals: Temp Pulse Resp BP Pulse Ox 97.8 F 57 L 20 113/56 100 08/30/17 04:50 08/30/17 05:42 08/30/17 04:50 08/30/17 04:50 08/30/17 04:50 General appearance: Present: no acute distress, well-nourished - EENT Eyes: Present: PERRL ENT: hearing intact, clear oral mucosa - Neck Neck: Present: supple, normal ROM - Respiratory Respiratory effort: normal Respiratory: bilateral: CTA - Cardiovascular Heart Sounds: Present: S1 & S2. Absent: rub, click - Extremities Extremities: pulses symmetrical, No edema Peripheral Pulses: within normal limits - Abdominal General gastrointestinal: Present: soft, non-tender, non-distended, normal bowel sounds Male genitourinary: Present: normal - Integumentary Integumentary: Present: clear, warm, dry - Musculoskeletal Musculoskeletal: gait normal, strength equal bilaterally - Psychiatric Psychiatric: appropriate mood/affect, intact judgment & insight - Neurologic Neurologic: CNII-XII intact, moves all extremities Plan Follow up with: PRIMARY CARE, [Primary Care Provider] - 3-5 Days Prescriptions: Insulin Detemir [Levemir] 15 units SUB-Q QHS 30 Days Sertraline [Zoloft] 50 mg PO QHS #30 tablet Glimepiride [Amaryl] 4 mg PO QDDIAB #60 tablet HYDROcodone/APAP 10-325 [[place] 10-325 mg TAB] 1 each PO Q6HR PRN #20 tablet PRN Reason: Pain metFORMIN [Glucophage] 500 mg PO BIDDIAB #60 tablet Syrge-Ndl,Ins 0.3 ml Half [place] [Insulin Syringe] 1 each MC DAILY 30 Days Warfarin [Coumadin] 2 mg PO DAILY #30 tablet
[2017-08-31] MEDS ORDERED: GLUCOPHAGE PO SCH (08:00)
== END 2017-08-30 15:43 | disposition home or self-care (01) | DRG 682 ==
LOC: ED 11:21 → 4A 13:02
PROVIDERS: ADMIT Internal Medicine; ATTEND Internal Medicine
PROC: 3E0234Z Introduction of Serum, Toxoid and Vaccine into Muscle, Percutaneous Approach (ICD-10-PCS; principal; 2017-08-28)
DX: N17.0 Acute kidney failure with tubular necrosis (principal); E11.00 Type 2 diabetes mellitus with hyperosmolarity without nonketotic hyperglycemic-hyperosmolar coma (NKHHC); E87.1 Hypo-osmolality and hyponatremia; E78.5 Hyperlipidemia, unspecified; F32.9 Major depressive disorder, single episode, unspecified; I10 Essential (primary) hypertension; Z79.01 Long term (current) use of anticoagulants; Z79.82 Long term (current) use of aspirin; Z79.899 Other long term (current) drug therapy; Z83.3 Family history of diabetes mellitus; Z82.49 Family history of ischemic heart disease and other diseases of the circulatory system; Z86.73 Personal history of transient ischemic attack (TIA), and cerebral infarction without residual deficits; Z23 Encounter for immunization
CPT/HCPCS: 36415; 71010; 80048; 80053; 80074; 81001; 82805; 82962; 83036; 84484; 85025; 90686; 90732; 93005; 93010; 96361; 96374; 96375; 99285; J1644; J1815; J1818; J2405; J7030; Q0162

== ENCOUNTER 2017-09-04 14:16 | Inpatient (IN) | payer MEDICAID ==
[2017-09-04 15:45] LABS: Eosinophils % (Auto) 1.1 % (0.0-4.3); Hematocrit 41.4 % (35.5-45.6); Mean Corpuscular HGB Conc 34 % (32-34); Mean Corpuscular Hemoglobin 30 pg (28-32); Mean Corpuscular Volume 89 fl (84-94); Platelet Count 237 K/mm3 (140-440); Red Blood Count 4.68 M/mm3 (3.65-5.03); Red Cell Distribution Width 13.4 % (13.2-15.2); White Blood Count 7.6 K/mm3 (4.5-11.0)
[2017-09-04 15:57] LABS: Chloride 92.8 mmol/L (98-107); INR 1.02 (0.87-1.13); Partial Thromboplastin Time 34.7 Sec. (24.2-36.6)
[2017-09-04] MEDS ORDERED: NACL 0.9% 1000 ML 1,000 ML ONE (16:31)
[2017-09-04] MEDS ORDERED: NACL 0.9% 1000 ML 1,000 ML IV ONE (17:00)
--- NOTE | 2017-09-04 17:20 | Emergency Department Report ---
ED General Adult HPI - General Chief complaint: Dizziness Stated complaint: DIZZINESS Time Seen by Provider: 09/04/17 16:29 Source: patient, EMS Mode of arrival: Stretcher Limitations: No Limitations - History of Present Illness Initial comments: Patient is a 61-year-old male asthma or history of stroke, diabetes, hypertension who presents with lightheadedness and weakness. Patient states around 8:00 today he was feeling really lightheaded and weak. Patient was seen as primary care doctor who sent him to the ER. Patient was hypotensive and given multiple liters of fluid. Patient still states that he is lightheaded today. He states that he's been compliant with his medication regimen. Patient denies having any chest pain or shortness of breath. Patient states that he has a mild headache as a 4 out of 10 nothing makes it better and nothing makes it worse. Patient denies having any nausea or vomiting. Severity scale (0 -10): 0 - Related Data Home Medications Medication Instructions Recorded Confirmed Last Taken Carvedilol [Coreg] 12.5 mg PO BID 02/26/16 09/04/17 08/28/17 Hydrochlorothiazide [HCTZ] 12.5 mg PO QDAY 02/26/16 09/04/17 08/28/17 Aspirin [Aspirin TAB] 325 mg PO QDAY 03/04/16 09/04/17 08/28/17 Previous Rx's Medication Instructions Recorded Last Taken Type Glimepiride [Amaryl] 4 mg PO QDDIAB #60 tablet 08/30/17 Unknown Rx HYDROcodone/APAP 10-325 [[place] 1 each PO Q6HR PRN #20 tablet 08/30/17 Unknown Rx 10-325 mg TAB] Insulin Detemir [Levemir] 15 units SUB-Q QHS 30 Days 08/30/17 Unknown Rx Lisinopril [Zestril TAB] 20 mg PO QDAY #30 08/30/17 08/28/17 Rx Sertraline [Zoloft] 50 mg PO QHS #30 tablet 08/30/17 Unknown Rx Syrge-Ndl,Ins 0.3 ml Half [place] 1 each MC DAILY 30 Days 08/30/17 Unknown Rx [Insulin Syringe] Warfarin [Coumadin] 2 mg PO DAILY #30 tablet 08/30/17 Unknown Rx metFORMIN [Glucophage] 500 mg PO BIDDIAB #60 tablet 08/30/17 Unknown Rx Allergies Allergy/AdvReac Type Severity Reaction Status Date / Time No Known Allergies Allergy Verified 07/24/17 12:17 ED Review of Systems ROS: Stated complaint: DIZZINESS Other details as noted in HPI Constitutional: denies: chills, fever Eyes: denies: eye pain, eye discharge, vision change ENT: denies: ear pain, throat pain Respiratory: denies: cough, shortness of breath, wheezing Cardiovascular: denies: chest pain, palpitations Endocrine: no symptoms reported Gastrointestinal: denies: abdominal pain, nausea, diarrhea Genitourinary: denies: urgency, dysuria Musculoskeletal: denies: back pain, joint swelling, arthralgia Skin: denies: rash, lesions Neurological: other (lightheadedness ). denies: headache, weakness, paresthesias Psychiatric: denies: anxiety, depression Hematological/Lymphatic: denies: easy bleeding, easy bruising ED Past Medical Hx - Past Medical History Previous Medical History?: Yes Hx Hypertension: Yes Hx CVA: Yes (x2) Hx Heart Attack/AMI: No Hx Congestive Heart Failure: No Hx Diabetes: Yes Hx GERD: No Hx Liver Disease: No Hx Renal Disease: No Hx Seizures: No Hx Asthma: No Hx COPD: No Hx HIV: No - Surgical History Past Surgical History?: Yes Additional Surgical History: R Rotator cuff - Social History Smoking Status: Unknown if ever smoked - Medications Home Medications: Home Medications Medication Instructions Recorded Confirmed Last Taken Type Carvedilol [Coreg] 12.5 mg PO BID 02/26/16 09/04/17 08/28/17 History Hydrochlorothiazide [HCTZ] 12.5 mg PO QDAY 02/26/16 09/04/17 08/28/17 History Aspirin [Aspirin TAB] 325 mg PO QDAY 03/04/16 09/04/17 08/28/17 History Glimepiride [Amaryl] 4 mg PO QDDIAB #60 tablet 08/30/17 09/04/17 Unknown Rx HYDROcodone/APAP 10-325 [[place] 1 each PO Q6HR PRN #20 tablet 08/30/17 09/04/17 Unknown Rx 10-325 mg TAB] Insulin Detemir [Levemir] 15 units SUB-Q QHS 30 Days 08/30/17 09/04/17 Unknown Rx Lisinopril [Zestril TAB] 20 mg PO QDAY #30 08/30/17 09/04/17 08/28/17 Rx Sertraline [Zoloft] 50 mg PO QHS #30 tablet 08/30/17 09/04/17 Unknown Rx Syrge-Ndl,Ins 0.3 ml Half [place] 1 each MC DAILY 30 Days 08/30/17 09/04/17 Unknown Rx [Insulin Syringe] Warfarin [Coumadin] 2 mg PO DAILY #30 tablet 08/30/17 09/04/17 Unknown Rx metFORMIN [Glucophage] 500 mg PO BIDDIAB #60 tablet 08/30/17 09/04/17 Unknown Rx ED Physical Exam - General Limitations: No Limitations General appearance: alert, in no apparent distress - Head Head exam: Present: atraumatic, normocephalic - Eye Eye exam: Present: normal appearance - ENT ENT exam: Present: mucous membranes moist - Neck Neck exam: Present: normal inspection - Respiratory Respiratory exam: Present: normal lung sounds bilaterally. Absent: respiratory distress - Cardiovascular Cardiovascular Exam: Present: regular rate, normal rhythm. Absent: systolic murmur, diastolic murmur, rubs, gallop - GI/Abdominal GI/Abdominal exam: Present: soft, normal bowel sounds - Rectal Rectal exam: Present: deferred - Extremities Exam Extremities exam: Present: normal inspection - Back Exam Back exam: Present: normal inspection - Neurological Exam Neurological exam: Present: alert, oriented X3 - Psychiatric Psychiatric exam: Present: normal affect, normal mood - Skin Skin exam: Present: warm, dry, intact, normal color. Absent: rash ED Course Vital Signs 09/04/17 09/04/17 09/04/17 14:54 15:40 15:47 Temperature 97.6 F Pulse Rate 62 Respiratory 16 16 Rate Blood Pressure 90/52 Blood Pressure 88/59 [Left] O2 Sat by Pulse 100 100 Oximetry 09/04/17 17:00 Temperature Pulse Rate 60 Respiratory 16 Rate Blood Pressure Blood Pressure 97/62 [Left] O2 Sat by Pulse 98 Oximetry ED Medical Decision Making - Lab Data Result diagrams: 09/04/17 15:20 09/04/17 15:20 Lab Results 09/04/17 09/04/17 09/04/17 Range/Units 15:20 15:20 15:20 WBC 7.6 (4.5-11.0) K/mm3 RBC 4.68 (3.65-5.03) M/mm3 Hgb 14.0 (11.8-15.2) gm/dl Hct 41.4 (35.5-45.6) % MCV 89 (84-94) fl MCH 30 (28-32) pg MCHC 34 (32-34) % RDW 13.4 (13.2-15.2) % Plt Count 237 (140-440) K/mm3 Lymph % (Auto) 17.4 (13.4-35.0) % [place] % (Auto) 7.4 H (0.0-7.3) % Eos % (Auto) 1.1 (0.0-4.3) % Baso % (Auto) 1.0 (0.0-1.8) % Lymph # 1.3 (1.2-5.4) K/mm3 [place] # 0.6 (0.0-0.8) K/mm3 Eos # 0.1 (0.0-0.4) K/mm3 Baso # 0.1 (0.0-0.1) K/mm3 Seg Neutrophils % 73.1 H (40.0-70.0) % Seg Neutrophils # 5.5 (1.8-7.7) K/mm3 PT 13.9 (12.2-14.9) Sec. INR 1.02 (0.87-1.13) APTT 34.7 (24.2-36.6) Sec. Sodium 130 L (137-145) mmol/L Potassium 6.0 H (3.6-5.0) mmol/L Chloride 92.8 L (98-107) mmol/L Carbon Dioxide 22 (22-30) mmol/L Anion Gap 21 mmol/L BUN 32 H (9-20) mg/dL Creatinine 2.1 H (0.8-1.5) mg/dL Estimated GFR 39 ml/min BUN/Creatinine Ratio 15 % Glucose 151 H (75-100) mg/dL Calcium 10.0 (8.4-10.2) mg/dL Troponin T 0.019 (0.00-0.029) ng/mL - EKG Data -: EKG Interpreted by Co - EKG Data 09/04/17 17:28 EKG shows sinus rhythm prolonged MN interval and right bundle branch block slight ST segment elevations V2. - Radiology Data Radiology results: image reviewed Chest x-ray: Shows no acute cardiopulmonary disease - Medical Decision Making Chief Medical diagnosis: Hyperkalemia Differential medical diagnosis: Hyperglycemia, arrhythmia, medication effect I will get CBC, CMP, troponin, EKG, chest x-ray, CT head Due to patient being hyperkalemic and still lightheaded patient will be admitted to the hospital. Discussed with patient he agrees with plan. Critical care attestation.: If time is entered above; I have spent that time in minutes in the direct care of this critically ill patient, excluding procedure time. ED Disposition Clinical Impression: Hyperkalemia Syncope Qualifiers: Syncope type: unspecified Qualified Code(s): R55 - Syncope and collapse Hypotension Qualifiers: Hypotension type: unspecified hypotension type Qualified Code(s): I95.9 - Hypotension, unspecified Disposition: DC-09 OP ADMIT IP TO THIS HOSP Is pt being admited?: Yes Does the pt Need Aspirin: No Condition: Stable Instructions: Syncope (ED) Referrals: PRIMARY CARE, [Primary Care Provider] - 3-5 Days
--- NOTE | 2017-09-04 19:24 | History and Physical Report ---
History of Present Illness Chief complaint: I feel dizzy History of present illness: 61 YO Male with HTN, DM, CVA, Asthma presents to ED for evaluation. Pt states that he has experienced lightheadedness and weakness for the past 1 day with persistent symptoms. Patient seen by primary care doctor who sent him to the ER. Pt states that it hurts to swallow food, and he feels like "food gets stuck " and comes back up. Pt denies fever, chills, CP, Palpitations, NVD, difficulty breathing, Syncope, productive cough recent ill contacts. Patient seen and evaluated in ED and found to be hypotensive with renal failure. Pt treated with IVF resuscitation therapy. Past History Past Medical History: diabetes, hypertension, stroke Past Surgical History: Other (Right rotator cuff) Social history: single. denies: smoking, alcohol abuse, prescription drug abuse Family history: no significant family history (reviewed) Medications and Allergies Allergies Allergy/AdvReac Type Severity Reaction Status Date / Time No Known Allergies Allergy Verified 07/24/17 12:17 Home Medications Medication Instructions Recorded Confirmed Last Taken Type Carvedilol [Coreg] 12.5 mg PO BID 02/26/16 09/04/17 08/28/17 History Hydrochlorothiazide [HCTZ] 12.5 mg PO QDAY 02/26/16 09/04/17 08/28/17 History Aspirin [Aspirin TAB] 325 mg PO QDAY 03/04/16 09/04/17 08/28/17 History Glimepiride [Amaryl] 4 mg PO QDDIAB #60 tablet 08/30/17 09/04/17 Unknown Rx HYDROcodone/APAP 10-325 [[place] 1 each PO Q6HR PRN #20 tablet 08/30/17 09/04/17 Unknown Rx 10-325 mg TAB] Insulin Detemir [Levemir] 15 units SUB-Q QHS 30 Days 08/30/17 09/04/17 Unknown Rx Lisinopril [Zestril TAB] 20 mg PO QDAY #30 08/30/17 09/04/17 08/28/17 Rx Sertraline [Zoloft] 50 mg PO QHS #30 tablet 08/30/17 09/04/17 Unknown Rx Syrge-Ndl,Ins 0.3 ml Half [place] 1 each MC DAILY 30 Days 08/30/17 09/04/17 Unknown Rx [Insulin Syringe] Warfarin [Coumadin] 2 mg PO DAILY #30 tablet 08/30/17 09/04/17 Unknown Rx metFORMIN [Glucophage] 500 mg PO BIDDIAB #60 tablet 08/30/17 09/04/17 Unknown Rx Active Meds: Active Medications Sodium Chloride (Nacl 0.9% 1000 Ml) 1,000 mls @ 42 mls/hr IV ONCE ONE Stop: 09/05/17 16:48 Last Admin: 09/04/17 17:00 Dose: 42 mls/hr Review of Systems Constitutional: weakness, other (feel sick and tired), no weight loss, no weight gain, no fever, no chills Ears, nose, mouth and throat: no ear pain, no ear discharge, no tinnitis, no decreased hearing, no nose pain, no nasal congestion Cardiovascular: no chest pain, no orthopnea, no palpitations, no rapid/ irregular heart beat, no edema, no syncope Respiratory: no cough, no cough with sputum, no excessive sputum, no hemoptysis , no shortness of breath Gastrointestinal: no nausea, no vomiting, no diarrhea, no constipation Genitourinary Male: no hematuria, no flank pain, no discharge, no urinary frequency, no urinary hesitancy, no nocturia Rectal: no pain, no incontinence, no bleeding Musculoskeletal: no neck stiffness, no neck pain, no shooting arm pain, no arm numbness/tingling, no low back pain, no shooting leg pain Integumentary: no rash, no pruritis, no redness, no sores, no wounds, no jaundice Neurological: no transient paralysis, no paralysis, no weakness, no parathesias , no numbness, no tingling, no seizures Psychiatric: no anxiety, no memory loss, no change in sleep habits, no sleep disturbances, no insomnia, no hypersomnia Endocrine: no cold intolerance, no heat intolerance, no polyphagia, no excessive thirst, no polydipsia, no polyuria, no nocturia Hematologic/Lymphatic: no easy bruising, no easy bleeding Allergic/Immunologic: no urticaria, no allergic rhinitis, no wheezing Exam - Constitutional Vitals: Temp Pulse Resp BP Pulse Ox 97.6 F 60 16 97/62 98 09/04/17 15:40 09/04/17 17:00 09/04/17 17:00 09/04/17 17:00 09/04/17 17:00 General appearance: Present: mild distress - EENT Eyes: Present: PERRL ENT: hearing intact, clear oral mucosa - Neck Neck: Present: supple, normal ROM - Respiratory Respiratory effort: normal Respiratory: bilateral: CTA - Cardiovascular Heart Sounds: Present: S1 & S2. Absent: rub, click - Extremities Extremities: pulses symmetrical, No edema Peripheral Pulses: within normal limits - Abdominal General gastrointestinal: Present: soft, non-tender, non-distended, normal bowel sounds Male genitourinary: Present: normal - Integumentary Integumentary: Present: clear, warm, dry - Musculoskeletal Musculoskeletal: gait normal, strength equal bilaterally - Psychiatric Psychiatric: appropriate mood/affect, intact judgment & insight - Neurologic Neurologic: CNII-XII intact, moves all extremities Results - Labs CBC & Chem 7: 09/04/17 15:20 09/04/17 15:20 Labs: Abnormal lab results 09/04/17 09/04/17 Range/Units 15:20 15:20 [place] % (Auto) 7.4 H (0.0-7.3) % Seg Neutrophils % 73.1 H (40.0-70.0) % Sodium 130 L (137-145) mmol/L Potassium 6.0 H (3.6-5.0) mmol/L Chloride 92.8 L (98-107) mmol/L BUN 32 H (9-20) mg/dL Creatinine 2.1 H (0.8-1.5) mg/dL Glucose 151 H (75-100) mg/dL Assessment and Plan - Patient Problems (1) ARF (acute renal failure) Current Visit: Yes Status: Acute Qualifiers: Acute renal failure type: A Plan to address problem: monitor uop q shift, Nephrology consulted, renal ultrasound, urine electrolytes , IVF resuscitation. (2) Odynophagia Current Visit: Yes Status: Acute Plan to address problem: GI consulted, ppi therpay, endoscopy as per GI (3) Hyponatremia Current Visit: Yes Status: Acute Plan to address problem: IVF resuscitation, repeat bmp (4) Hypotension Current Visit: Yes Status: Acute Qualifiers: Hypotension type: unspecified hypotension type Trimester: T Qualified Code(s): I95.9 - Hypotension, unspecified Plan to address problem: IVF resuscitation, thyroid panel, supportive care. (5) Hyperkalemia Current Visit: Yes Status: Acute Plan to address problem: IVF resuscitation, NO ekg changes, repeat bmp, (6) DVT prophylaxis Current Visit: Yes Status: Acute
[2017-09-04] MEDS ORDERED: PROVENTIL IH PRN (19:25)
[2017-09-04] MEDS ORDERED: ZOFRAN IV PRN (19:25)
[2017-09-04] MEDS ORDERED: TYLENOL PO PRN (19:25)
--- NOTE | 2017-09-04 20:01 | Cat Scan Report ---
FINAL REPORT PROCEDURE: CT HEAD/BRAIN WO CON TECHNIQUE: Computerized tomography of the head was performed without contrast material. HISTORY: lightheadedness and headache COMPARISON: No prior studies are available for comparison. FINDINGS: Mild mucosal thickening is seen in the ethmoid air cells. Visualized portions of the mastoid air cells are clear. Calcifications are seen in the distal ICAs. No calvarial fracture is seen. Encephalomalacia and gliosis are seen in the left frontal lobe consistent with prior CVA. Mild compensatory enlargement is seen of the anterior horn of the left lateral ventricle. There likely moderate chronic small vessel ischemic changes in the periventricular white matter bilaterally. No acute intracranial hemorrhage or mass effect is seen. Tiny focus of air is seen in the left cavernous sinus that is likely associated with line placement or phlebotomy. IMPRESSION: Likely chronic ischemic changes are seen in the brain.
[2017-09-05] MEDS: NACL 0.45% 1000 ML 1,000 ML IV SCH (01:13)
[2017-09-05] MEDS ORDERED: NORCO 10/325 PO PRN (06:10)
[2017-09-05] MEDS ORDERED: D50W (25GM) Syringe IV PRN (06:12)
--- NOTE | 2017-09-05 07:37 | XRay Report ---
Portable chest: SOB. The lungs are clear. The heart is normal in size and there is no vascular congestion. The gera regions are both slightly prominent centrally. Evidence of old trauma to proximal left humerus and scapula. No interval change compared to prior exam of August 28, 2017 nor January 2012. Impression: Slightly prominent central vascular structures. Possibility of peripheral hypertension is raised.
[2017-09-05 08:51] LABS: Anion Gap 19 mmol/L; BUN/Creatinine Ratio 26; Blood Urea Nitrogen 26 mg/dL (9-20); Calcium 9.4 mg/dL (8.4-10.2); Carbon Dioxide 26 mmol/L (22-30); Chloride 98.9 mmol/L (98-107); Glucose 123 mg/dL (75-100); Potassium 4.9 mmol/L (3.6-5.0); Sodium 139 mmol/L (137-145)
[2017-09-05] MEDS ORDERED: KIONEX PR ONE ×2 (09:00→13:00)
[2017-09-05] MEDS ORDERED: HCTZ PO SCH (10:00)
--- NOTE | 2017-09-05 12:03 | Ultrasound Report ---
Renal ultrasound: Renal failure. The right kidney has a length of 11.3 cm. The left renal length is a proximately 11.5 cm but the inferior pole is partially obscured. Both kidneys appear to have normal echo pattern and there is no evidence of renal mass nor calcification in either kidney. Images of the urinary bladder are unremarkable. Impressions: No pathology identified.
[2017-09-05] MEDS: ASPIRIN PO SCH (12:20)
[2017-09-05] MEDS: AMARYL PO SCH (12:21)
[2017-09-05] MEDS: COREG PO SCH ×2 (12:21→22:59)
[2017-09-05] MEDS: NOVOLOG SUB-Q SCH ×4 (12:22→23:12)
--- NOTE | 2017-09-05 12:40 | Gastroenterology Consultation ---
<GALICIADONALDO CHARLESJUAN PABLO GOMEZ - Last Filed: 09/05/17 12:46> History of Present Illness - Reason for Consult Consult date: 09/05/17 Odynophagia Requesting physician: ALBERT YO - History of Present Illness Mr Lentz is a 61 y/o male with hx of HTN, DM, CVA, and Asthma presents to ED for evaluation or painful swallowing with intermittent N/V and hypotension. He was found to be hypotensive, hyperkalemic and hyponatremic on admission. He reports he has recently been started on several new medications for diabetes and BP. His symptoms, including GI, started a week ago. No prior GI hx or workup. The patient lives with his sister, his guardian, due to previous CVA. He is on coumadin at home, LD 09/04/17. CT of head notable for chronic ischemic changes. No fever or diarrhea. Past History Past Medical History: diabetes, hypertension, stroke Past Surgical History: Other (Right rotator cuff) Social history: single. denies: smoking, alcohol abuse, prescription drug abuse Family history: no significant family history (reviewed) Medications and Allergies Allergies Allergy/AdvReac Type Severity Reaction Status Date / Time No Known Allergies Allergy Verified 07/24/17 12:17 Home Medications Medication Instructions Recorded Confirmed Last Taken Type Carvedilol [Coreg] 12.5 mg PO BID 02/26/16 09/04/17 08/28/17 History Hydrochlorothiazide [HCTZ] 12.5 mg PO QDAY 02/26/16 09/04/17 08/28/17 History Aspirin [Aspirin TAB] 325 mg PO QDAY 03/04/16 09/04/17 08/28/17 History Glimepiride [Amaryl] 4 mg PO QDDIAB #60 tablet 08/30/17 09/04/17 Unknown Rx HYDROcodone/APAP 10-325 [[place] 1 each PO Q6HR PRN #20 tablet 08/30/17 09/04/17 Unknown Rx 10-325 mg TAB] Insulin Detemir [Levemir] 15 units SUB-Q QHS 30 Days 08/30/17 09/04/17 Unknown Rx Lisinopril [Zestril TAB] 20 mg PO QDAY #30 08/30/17 09/04/17 08/28/17 Rx Sertraline [Zoloft] 50 mg PO QHS #30 tablet 08/30/17 09/04/17 Unknown Rx Syrge-Ndl,Ins 0.3 ml Half [place] 1 each MC DAILY 30 Days 08/30/17 09/04/17 Unknown Rx [Insulin Syringe] Warfarin [Coumadin] 2 mg PO DAILY #30 tablet 08/30/17 09/04/17 Unknown Rx metFORMIN [Glucophage] 500 mg PO BIDDIAB #60 tablet 08/30/17 09/04/17 Unknown Rx Active Meds: Active Medications Acetaminophen (Tylenol) 650 mg PO Q4H PRN PRN Reason: Pain MILD(1-3)/Fever >100.5/SANCHEZ Acetaminophen/Hydrocodone Bitart ([place] 10) 1 each PO Q6HR PRN PRN Reason: Pain, Moderate (4-6) Albuterol (Proventil) 2.5 mg IH Q3HRT PRN PRN Reason: Shortness Of Breath Aspirin (Aspirin) 325 mg PO QDAY [facility] Last Admin: 09/05/17 12:20 Dose: 325 mg Carvedilol (Coreg) 12.5 mg PO BID [facility] Last Admin: 09/05/17 12:21 Dose: Not Given Dextrose (D50w (25gm) Syringe) 50 ml IV PRN PRN PRN Reason: Hypoglycemia Glimepiride (Amaryl) 4 mg PO QDDIAB [facility] Last Admin: 09/05/17 12:21 Dose: Not Given Hydrochlorothiazide (Hctz) 12.5 mg PO QDAY [facility] Last Admin: 09/05/17 12:21 Dose: Not Given Sodium Chloride (Nacl 0.9% 1000 Ml) 1,000 mls @ 42 mls/hr IV ONCE ONE Stop: 09/05/17 16:48 Last Admin: 09/04/17 17:00 Dose: 42 mls/hr Sodium Chloride (Nacl 0.45% 1000 Ml) 1,000 mls @ 125 mls/hr IV DIRECT [facility] Last Admin: 09/05/17 01:13 Dose: 125 mls/hr Insulin Aspart (Novolog) 0 units SUB-Q ACHS [facility] PRN Reason: Protocol Last Admin: 09/05/17 12:26 Dose: Not Given Insulin Detemir (Levemir) 15 units SUB-Q QHS [facility] Ondansetron HCl (Zofran) 4 mg IV Q8H PRN PRN Reason: N/V unrelieved by Reglan Sertraline HCl (Zoloft) 50 mg PO QHS [place] Sodium Polystyrene Sulfonate (Kionex) 60 gm UT ONCE ONE Stop: 09/05/17 13:01 Last Admin: 09/05/17 12:22 Dose: 60 gm Review of Systems - Review of Systems All systems: negative Constitutional: weakness Gastrointestinal: abdominal pain, nausea, vomiting Neurological: other (dizziness) Exam - Constitutional Vital Signs: Temp Pulse Resp BP Pulse Ox 98.8 F 62 20 121/89 96 09/05/17 12:24 09/05/17 12:24 09/05/17 12:24 09/05/17 12:24 09/05/17 12:24 General appearance: no acute distress - EENT Eyes: EOM intact ENT: hearing intact - Neck Neck: supple - Respiratory Respiratory: bilateral: CTA - Cardiovascular Rhythm: regular Heart Sounds: Present: S1 & S2 Extremities: No edema, Full ROM - Gastrointestinal General gastrointestinal: Present: soft, non-tender, normal bowel sounds - Integumentary Integumentary: Present: warm, dry - Neurologic Neurological: alert and oriented x3 - Psychiatric Psychiatric: cooperative - Labs CBC & Chem 7: 09/04/17 15:20 09/05/17 08:20 Lab Results: Laboratory Results - last 24 hr 09/04/17 09/05/17 09/05/17 20:15 08:20 12:26 Sodium 139 D Potassium 4.9 Chloride 98.9 Carbon Dioxide 26 Anion Gap 19 BUN 26 H Creatinine 1.0 D Estimated GFR > 60 BUN/Creatinine Ratio 26 Glucose 123 H POC Glucose 135 H Calcium 9.4 Urine Creatinine 215.8 H Urine Sodium 99 Assessment and Plan 1. Odynophagia, dysphagia -consider testing for strep, patient has complaints of "sore throat" -SOURCING SPECIALIST evaluation for swallow -Hold Coumadin for now ( INR 1.02) LD 09/04/17 per sister- in consideration of possible EGD over the next couple of days -Ok for clear liquids 2. N/V -likley due to hypotension and the initiation of new medications ( Diabetic and BP) 3. Abdominal cramping -pt states resolved at this time. -Monitor -CT of A/P if continues to have abdominal discomfort. 4. Hypotension 2. Hyperkalemia <GABY MOULTON - Last Filed: 09/05/17 16:53> Medications and Allergies Active Meds: Active Medications Acetaminophen (Tylenol) 650 mg PO Q4H PRN PRN Reason: Pain MILD(1-3)/Fever >100.5/SANCHEZ Acetaminophen/Hydrocodone Bitart ([place] 10/325) 1 each PO Q6HR PRN PRN Reason: Pain, Moderate (4-6) Albuterol (Proventil) 2.5 mg IH Q3HRT PRN PRN Reason: Shortness Of Breath Aspirin (Aspirin) 325 mg PO QDAY [facility] Last Admin: 09/05/17 12:20 Dose: 325 mg Carvedilol (Coreg) 12.5 mg PO BID [facility] Last Admin: 09/05/17 12:21 Dose: Not Given Dextrose (D50w (25gm) Syringe) 50 ml IV PRN PRN PRN Reason: Hypoglycemia Glimepiride (Amaryl) 4 mg PO QDDIAB [facility] Last Admin: 09/05/17 12:21 Dose: Not Given Heparin Sodium (Porcine) (Heparin) 5,000 unit SUB-Q Q12HR [facility] Sodium Chloride (Nacl 0.45% 1000 Ml) 1,000 mls @ 125 mls/hr IV DIRECT [facility] Last Admin: 09/05/17 01:13 Dose: 125 mls/hr Insulin Aspart (Novolog) 0 units SUB-Q ACHS [facility] PRN Reason: Protocol Last Admin: 09/05/17 12:26 Dose: Not Given Insulin Detemir (Levemir) 15 units SUB-Q QHS [facility] Ondansetron HCl (Zofran) 4 mg IV Q8H PRN PRN Reason: N/V unrelieved by Reglan Sertraline HCl (Zoloft) 50 mg PO QHS [facility] Exam - Constitutional Vital Signs: Temp Pulse Resp BP Pulse Ox 98.8 F 62 20 121/89 96 09/05/17 12:24 09/05/17 12:24 09/05/17 12:24 09/05/17 12:24 09/05/17 12:24 - Labs CBC & Chem 7: 09/04/17 15:20 09/05/17 08:20 Lab Results: Laboratory Results - last 24 hr 10/12/17 10/13/17 10/13/17 20:15 08:20 12:26 Sodium 139 D Potassium 4.9 Chloride 98.9 Carbon Dioxide 26 Anion Gap 19 BUN 26 H Creatinine 1.0 D Estimated GFR > 60 BUN/Creatinine Ratio 26 Glucose 123 H POC Glucose 135 H Calcium 9.4 Urine Creatinine 215.8 H Urine Sodium 99 Assessment and Plan Patient seen and examined. Agree with note by Sridevi Galicia. Will obtain esophogram. Rest as above.
--- NOTE | 2017-09-05 14:37 | Progress Note ---
Assessment and Plan Assessment and plan: 61-year-old -Beninese male with past medical history significant for CVA , DM2, hypertension presented to the emergency department for the compliants of odynophagia and generalized weakness. Odynophagia - GI consult appreciated - Swallow evaluation - May need EGD ARF secondary to vasomotor nephropathy - Was given IV fluids and resolved - Renal ultrasound normal Hypertension - Currently hypotensive and hasn't his blood pressure medications History of CVA - CT head shows chronic infarction, no acute changes patient on Coumadin and subtherapeutic INR, we will hold it for EGD DVT prophylaxis - Heparin Disposition - Continue inpatient care History Interval history: Patient was seen and evaluated this morning, no new complaints. Hospitalist Physical - Physical exam Narrative exam: Not in cardiopulmonary distress. The patient appeared well nourished and normally developed. Vital signs as documented. Head exam is unremarkable. No scleral icterus . Neck is without jugular venous distension, thyromegaly, or carotid bruits. Lungs are clear to auscultation. Cardiac exam reveals regular rate and Rhythm. First and second heart sounds normal. No murmurs, rubs or gallops. Abdominal exam reveals normal bowel sounds, no masses, no organomegaly and no aortic enlargement. Extremities are nonedematous and both femoral and pedal pulses are normal. ROTARY SURFACE GRINDER: Alert and oriented 3. No focal weakness. - Constitutional Vitals: Temp Pulse Resp BP Pulse Ox 98.8 F 62 20 121/89 96 09/05/17 12:24 09/05/17 12:24 09/05/17 12:24 09/05/17 12:24 09/05/17 12:24 General appearance: Present: mild distress Results - Labs CBC & Chem 7: 09/04/17 15:20 09/05/17 08:20 Labs: Laboratory Last Values WBC 7.6 K/mm3 (4.5-11.0) 09/04/17 15:20 RBC 4.68 M/mm3 (3.65-5.03) 09/04/17 15:20 Hgb 14.0 gm/dl (11.8-15.2) 09/04/17 15:20 Hct 41.4 % (35.5-45.6) 09/04/17 15:20 MCV 89 fl (84-94) 09/04/17 15:20 MCH 30 pg (28-32) 09/04/17 15:20 MCHC 34 % (32-34) 09/04/17 15:20 RDW 13.4 % (13.2-15.2) 09/04/17 15:20 Plt Count 237 K/mm3 (140-440) 09/04/17 15:20 Lymph % (Auto) 17.4 % (13.4-35.0) 09/04/17 15:20 [place] % (Auto) 7.4 % (0.0-7.3) H 09/04/17 15:20 Eos % (Auto) 1.1 % (0.0-4.3) 09/04/17 15:20 Baso % (Auto) 1.0 % (0.0-1.8) 09/04/17 15:20 Lymph # 1.3 K/mm3 (1.2-5.4) 09/04/17 15:20 [place] # 0.6 K/mm3 (0.0-0.8) 09/04/17 15:20 Eos # 0.1 K/mm3 (0.0-0.4) 09/04/17 15:20 Baso # 0.1 K/mm3 (0.0-0.1) 09/04/17 15:20 Seg Neutrophils % 73.1 % (40.0-70.0) H 09/04/17 15:20 Seg Neutrophils # 5.5 K/mm3 (1.8-7.7) 09/04/17 15:20 PT 13.9 Sec. (12.2-14.9) 09/04/17 15:20 INR 1.02 (0.87-1.13) 09/04/17 15:20 APTT 34.7 Sec. (24.2-36.6) 09/04/17 15:20 Sodium 139 mmol/L (137-145) D 09/05/17 08:20 Potassium 4.9 mmol/L (3.6-5.0) 09/05/17 08:20 Chloride 98.9 mmol/L (98-107) 09/05/17 08:20 Carbon Dioxide 26 mmol/L (22-30) 09/05/17 08:20 Anion Gap 19 mmol/L 09/05/17 08:20 BUN 26 mg/dL (9-20) H 09/05/17 08:20 Creatinine 1.0 mg/dL (0.8-1.5) D 09/05/17 08:20 Estimated GFR > 60 ml/min 09/05/17 08:20 BUN/Creatinine Ratio 26 % 09/05/17 08:20 Glucose 123 mg/dL (75-100) H 09/05/17 08:20 POC Glucose 135 (70-105) H 09/05/17 12:26 Calcium 9.4 mg/dL (8.4-10.2) 09/05/17 08:20 Troponin T 0.019 ng/mL (0.00-0.029) 09/04/17 15:20 TSH 1.660 mlU/mL (0.270-4.200) 09/04/17 18:52 Free T4 1.12 ng/dL (0.76-1.46) 09/04/17 18:52 Urine Creatinine 215.8 mg/dL (0.1-20.0) H 09/04/17 20:15 Urine Sodium 99 mEq/L 09/04/17 20:15
[2017-09-05] MEDS: ZOLOFT PO SCH (22:59)
[2017-09-05] MEDS: HEPARIN SUB-Q SCH (22:59)
[2017-09-05] MEDS: LEVEMIR SUB-Q SCH ×2 (23:00→23:12)
[2017-09-06] MEDS: NOVOLOG SUB-Q SCH ×4 (07:30→22:51)
[2017-09-06] MEDS: AMARYL PO SCH (08:00)
--- NOTE | 2017-09-06 08:03 | Consultation ---
History of Present Illness - Reason for Consult Consult date: 09/06/17 acute renal failure, hyperkalemia - History of Present Illness The patient is a 61 YO AAM with medical history significant for HTN, Type 2 DM, CVA and Asthma who presented to ED for evaluation one day h/o lightheadedness and weakness. Patient was recently started on new meds for DM and HTN. Symptoms are mostly orthostatic. He was hypotensive in the ER and received multiple IV fluid boluses. On admission his creatinine was 2.1 with potassium of 6. Today his creatinine is 1 with K of 4.9. His symptoms are better at this time. Associated symptoms include painful swallowing with intermittent N and V. Past History Past Medical History: diabetes, hypertension, stroke Past Surgical History: Other (Right rotator cuff) Social history: single. denies: smoking, alcohol abuse, prescription drug abuse Family history: no significant family history (reviewed) Medications and Allergies Allergies Allergy/AdvReac Type Severity Reaction Status Date / Time No Known Allergies Allergy Verified 07/24/17 12:17 Home Medications Medication Instructions Recorded Confirmed Last Taken Type Carvedilol [Coreg] 12.5 mg PO BID 02/26/16 09/04/17 08/28/17 History Hydrochlorothiazide [HCTZ] 12.5 mg PO QDAY 02/26/16 09/04/17 08/28/17 History Aspirin [Aspirin TAB] 325 mg PO QDAY 03/04/16 09/04/17 08/28/17 History Glimepiride [Amaryl] 4 mg PO QDDIAB #60 tablet 08/30/17 09/04/17 Unknown Rx HYDROcodone/APAP 10-325 [[place] 1 each PO Q6HR PRN #20 tablet 08/30/17 09/04/17 Unknown Rx 10-325 mg TAB] Insulin Detemir [Levemir] 15 units SUB-Q QHS 30 Days 08/30/17 09/04/17 Unknown Rx Lisinopril [Zestril TAB] 20 mg PO QDAY #30 08/30/17 09/04/17 08/28/17 Rx Sertraline [Zoloft] 50 mg PO QHS #30 tablet 08/30/17 09/04/17 Unknown Rx Syrge-Ndl,Ins 0.3 ml Half [place] 1 each MC DAILY 30 Days 08/30/17 09/04/17 Unknown Rx [Insulin Syringe] Warfarin [Coumadin] 2 mg PO DAILY #30 tablet 08/30/17 09/04/17 Unknown Rx metFORMIN [Glucophage] 500 mg PO BIDDIAB #60 tablet 08/30/17 09/04/17 Unknown Rx Active Meds: Active Medications Acetaminophen (Tylenol) 650 mg PO Q4H PRN PRN Reason: Pain MILD(1-3)/Fever >100.5/SANCHEZ Acetaminophen/Hydrocodone Bitart ([place] 10) 1 each PO Q6HR PRN PRN Reason: Pain, Moderate (4-6) Albuterol (Proventil) 2.5 mg IH Q3HRT PRN PRN Reason: Shortness Of Breath Aspirin (Aspirin) 325 mg PO QDAY [facility] Last Admin: 09/05/17 12:20 Dose: 325 mg Carvedilol (Coreg) 12.5 mg PO BID [facility] Last Admin: 09/05/17 22:59 Dose: 12.5 mg Dextrose (D50w (25gm) Syringe) 50 ml IV PRN PRN PRN Reason: Hypoglycemia Glimepiride (Amaryl) 4 mg PO QDDIAB [facility] Last Admin: 09/05/17 12:21 Dose: Not Given Heparin Sodium (Porcine) (Heparin) 5,000 unit SUB-Q Q12HR [facility] Last Admin: 09/05/17 22:59 Dose: 5,000 unit Sodium Chloride (Nacl 0.45% 1000 Ml) 1,000 mls @ 125 mls/hr IV DIRECT [facility] Last Admin: 09/05/17 01:13 Dose: 125 mls/hr Insulin Aspart (Novolog) 0 units SUB-Q ACHS [facility] PRN Reason: Protocol Last Admin: 09/05/17 23:12 Dose: Not Given Insulin Detemir (Levemir) 15 units SUB-Q QHS [facility] Last Admin: 09/05/17 23:12 Dose: Not Given Ondansetron HCl (Zofran) 4 mg IV Q8H PRN PRN Reason: N/V unrelieved by Reglan Sertraline HCl (Zoloft) 50 mg PO QHS [facility] Last Admin: 09/05/17 22:59 Dose: 50 mg Review of Systems Constitutional: weakness, no weight loss, no weight gain, no fever, no chills, no anorexia Ears, nose, mouth and throat: no epistaxis Cardiovascular: lightheadedness, high blood pressure, no chest pain, no orthopnea, no edema, no syncope, no shortness of breath, no dyspnea on exertion , no leg edema Respiratory: no cough, no hemoptysis, no shortness of breath, no dyspnea on exertion Gastrointestinal: nausea, vomiting, no abdominal pain, no diarrhea, no BRBPR, no melena, no jaundice Genitourinary Male: no dysuria, no hematuria Rectal: no bleeding Musculoskeletal: no redness of joints Integumentary: no rash, no sores, no wounds, no jaundice Neurological: no paralysis, no seizures, no syncope, no vertigo, no headaches Psychiatric: no disorientation, no confusion Endocrine: no weight change Hematologic/Lymphatic: no easy bleeding Exam - Vital Signs Vital signs: Vital Signs BP 90/52 09/04/17 14:54 - General Appearance General appearance: well-developed, well-nourished, appears stated age, other ( no distress) EENT: ATNC, PERRL, mucous membranes moist, hearing intact, vision intact Neck: Present: neck supple, trachea midline Respiratory: Clear to Ascultation Heart: regular, S1S2, no murmurs Gastrointestinal: Present: normoactive bowel sounds, obese. Absent: tenderness , distended Integumentary: no rash, warm and dry Neurologic: no focal deficit, no asterixis, alert and oriented x3, CN 3-12 intact Musculoskeletal: Present: other (no edema) Psychiatric: mood/affect appropriate, cooperative Results - Lab Results 09/04/17 15:20 09/07/17 06:54 Most recent lab results Calcium 9.4 mg/dL (8.4-10.2) 09/05/17 08:20 Urine Creatinine 215.8 mg/dL (0.1-20.0) H 09/04/17 20:15 Urine Sodium 99 mEq/L 09/04/17 20:15 - Image Kidney/bladder ultrasound: report reviewed Assessment and Plan - Patient Problems (1) ARF (acute renal failure) Current Visit: Yes Status: Acute Qualifiers: Acute renal failure type: A Plan to address problem: Hemodynamic MARCO ANTONIO in the setting of volume depletion and hypotension. Renal function is better. Continue IV fluids. (2) Hyperkalemia Current Visit: Yes Status: Acute Plan to address problem: Hyperkalemia in the setting of MARCO ANTONIO. Resolved now. (3) Hypotension Current Visit: Yes Status: Acute Qualifiers: Hypotension type: unspecified hypotension type Trimester: T Qualified Code(s): I95.9 - Hypotension, unspecified Plan to address problem: Improved. (4) Hyponatremia Current Visit: Yes Status: Acute Plan to address problem: Secondary to HCTZ. Improved.
[2017-09-06] MEDS: COREG PO SCH ×2 (10:00→23:11)
[2017-09-06] MEDS: ASPIRIN PO SCH (10:00)
[2017-09-06] MEDS: HEPARIN SUB-Q SCH ×2 (10:00→23:03)
--- NOTE | 2017-09-06 10:04 | Gastroenterology Progress Note ---
Assessment and Plan GI: pt w/ resolving dysphagia/odonophagia - per pt had BS yesterday, will follow results - soft diet - consider EGD based on progress - will follow Subjective Date of service: 09/06/17 Interval history: - reports feeling better, tolerating clear liquid and would like diet advanced Objective - Constitutional Vitals: Temp Pulse Resp BP Pulse Ox 98.3 F 65 20 114/67 97 09/06/17 07:50 09/06/17 07:50 09/06/17 07:50 09/06/17 07:50 09/06/17 08:39 General appearance: no acute distress - Respiratory Respiratory: bilateral: CTA - Cardiovascular Rhythm: regular Heart Sounds: Present: S1 & S2 - Gastrointestinal General gastrointestinal: Present: soft, non-tender - Labs CBC & Chem 7: 09/04/17 15:20 09/05/17 08:20 Labs: Laboratory Results - last 24 hr 09/05/17 09/05/17 09/05/17 12:26 18:37 22:36 POC Glucose 135 H 135 H 122 H 09/06/17 06:23 POC Glucose 121 H
--- NOTE | 2017-09-06 11:46 | Progress Note ---
Assessment and Plan Assessment and plan: 61-year-old -Maltese male with past medical history significant for CVA , DM2, hypertension presented to the emergency department for the compliants of odynophagia and generalized weakness. Odynophagia - GI consult appreciated -MBS was done george morning pending result - will follow ARF secondary to vasomotor nephropathy - Was given IV fluids and resolved - Renal ultrasound normal Hypertension - Currently hypotensive and held his blood pressure medications History of CVA - CT head shows chronic infarction, no acute changes patient on Coumadin and subtherapeutic INR, we will hold it for EGD DVT prophylaxis - Heparin Disposition - Continue inpatient care History Interval history: Patient was seen and evaluated this morning, no new complaints, difficulty of swallowing is getting better. Hospitalist Physical - Physical exam Narrative exam: Not in cardiopulmonary distress. The patient appeared well nourished and normally developed. Vital signs as documented. Head exam is unremarkable. No scleral icterus . Neck is without jugular venous distension, thyromegaly, or carotid bruits. Lungs are clear to auscultation. Cardiac exam reveals regular rate and Rhythm. First and second heart sounds normal. No murmurs, rubs or gallops. Abdominal exam reveals normal bowel sounds, no masses, no organomegaly and no aortic enlargement. Extremities are nonedematous and both femoral and pedal pulses are normal. REMARKETING REP: Alert and oriented 3. No focal weakness. - Constitutional Vitals: Temp Pulse Resp BP Pulse Ox 98.3 F 65 20 114/67 97 09/06/17 07:50 09/06/17 07:50 09/06/17 07:50 09/06/17 07:50 09/06/17 08:39 General appearance: Present: mild distress Results - Labs CBC & Chem 7: 09/04/17 15:20 09/05/17 08:20 Labs: Laboratory Last Values WBC 7.6 K/mm3 (4.5-11.0) 09/04/17 15:20 RBC 4.68 M/mm3 (3.65-5.03) 09/04/17 15:20 Hgb 14.0 gm/dl (11.8-15.2) 09/04/17 15:20 Hct 41.4 % (35.5-45.6) 09/04/17 15:20 MCV 89 fl (84-94) 09/04/17 15:20 MCH 30 pg (28-32) 09/04/17 15:20 MCHC 34 % (32-34) 09/04/17 15:20 RDW 13.4 % (13.2-15.2) 09/04/17 15:20 Plt Count 237 K/mm3 (140-440) 09/04/17 15:20 Lymph % (Auto) 17.4 % (13.4-35.0) 09/04/17 15:20 [place] % (Auto) 7.4 % (0.0-7.3) H 09/04/17 15:20 Eos % (Auto) 1.1 % (0.0-4.3) 09/04/17 15:20 Baso % (Auto) 1.0 % (0.0-1.8) 09/04/17 15:20 Lymph # 1.3 K/mm3 (1.2-5.4) 09/04/17 15:20 [place] # 0.6 K/mm3 (0.0-0.8) 09/04/17 15:20 Eos # 0.1 K/mm3 (0.0-0.4) 09/04/17 15:20 Baso # 0.1 K/mm3 (0.0-0.1) 09/04/17 15:20 Seg Neutrophils % 73.1 % (40.0-70.0) H 09/04/17 15:20 Seg Neutrophils # 5.5 K/mm3 (1.8-7.7) 09/04/17 15:20 PT 13.9 Sec. (12.2-14.9) 09/04/17 15:20 INR 1.02 (0.87-1.13) 09/04/17 15:20 APTT 34.7 Sec. (24.2-36.6) 09/04/17 15:20 Sodium 139 mmol/L (137-145) D 09/05/17 08:20 Potassium 4.9 mmol/L (3.6-5.0) 09/05/17 08:20 Chloride 98.9 mmol/L (98-107) 09/05/17 08:20 Carbon Dioxide 26 mmol/L (22-30) 09/05/17 08:20 Anion Gap 19 mmol/L 09/05/17 08:20 BUN 26 mg/dL (9-20) H 09/05/17 08:20 Creatinine 1.0 mg/dL (0.8-1.5) D 09/05/17 08:20 Estimated GFR > 60 ml/min 09/05/17 08:20 BUN/Creatinine Ratio 26 % 09/05/17 08:20 Glucose 123 mg/dL (75-100) H 09/05/17 08:20 POC Glucose 121 (70-105) H 09/06/17 06:23 Calcium 9.4 mg/dL (8.4-10.2) 09/05/17 08:20 Troponin T 0.019 ng/mL (0.00-0.029) 09/04/17 15:20 TSH 1.660 mlU/mL (0.270-4.200) 09/04/17 18:52 Free T4 1.12 ng/dL (0.76-1.46) 09/04/17 18:52 Urine Creatinine 215.8 mg/dL (0.1-20.0) H 09/04/17 20:15 Urine Sodium 99 mEq/L 09/04/17 20:15
--- NOTE | 2017-09-06 11:53 | Fluoroscopy Report ---
FLUOROSCOPIC BARIUM ESOPHAGRAM: 09/06/17 CLINICAL: Dysphagia. FINDINGS: Single and double contrast barium examinations were performed with the patient standing upright and in the prone oblique position. Normal swallowing mechanism was observed. Normal esophageal peristalsis and primary stripping wave. No hiatal hernia. High-grade spontaneous gastroesophageal reflux was observed .No mass, ulcer or stricture. IMPRESSION: Gastroesophageal reflux but otherwise normal exam. No evidence of esophagitis, stricture or ulcer.
[2017-09-06 12:45] LABS: Alanine Aminotransferase 26 units/L (7-56); Albumin 4.1 g/dL (3.9-5); Albumin/Globulin Ratio 1.4 %; Alkaline Phosphatase 66 units/L (35-129); Anion Gap 20 mmol/L; BUN/Creatinine Ratio 21; Blood Urea Nitrogen 15 mg/dL (9-20); Calcium 9.6 mg/dL (8.4-10.2); Carbon Dioxide 24 mmol/L (22-30); Chloride 98.1 mmol/L (98-107); Glucose 138 mg/dL (75-100); Potassium 4.9 mmol/L (3.6-5.0); Sodium 137 mmol/L (137-145)
[2017-09-06] MEDS: LEVEMIR SUB-Q SCH (23:04)
[2017-09-06] MEDS: ZOLOFT PO SCH (23:05)
[2017-09-07 00:03] LABS: Bilirubin,Urine NEG (Negative); Blood,Urine NEG (Negative); Ketones,Urine NEG (Negative); Leukocyte Esterase,Urine NEG (Negative); Mucus,Urine FEW /HPF; Nitrite,Urine NEG (Negative); Protein,Urine <15 mg/dL mg/dL (Negative); Urobilinogen,Urine < 2.0 mg/dL (<2.0); WBC,Urine < 1.0 /HPF (0.0-6.0)
[2017-09-07 07:33] LABS: Anion Gap 16 mmol/L; BUN/Creatinine Ratio 19; Blood Urea Nitrogen 15 mg/dL (9-20); Calcium 8.9 mg/dL (8.4-10.2); Carbon Dioxide 25 mmol/L (22-30); Chloride 97.4 mmol/L (98-107); Creatine Kinase 62 units/L (55-170); Glucose 129 mg/dL (75-100); Sodium 134 mmol/L (137-145)
--- NOTE | 2017-09-07 07:42 | Progress Note ---
Assessment and Plan - Patient Problems (1) ARF (acute renal failure) Current Visit: Yes Status: Acute Qualifiers: Acute renal failure type: A Plan to address problem: Hemodynamic MARCO ANTONIO in the setting of volume depletion and hypotension. Renal function is better. Will sign off. (2) Hyperkalemia Current Visit: Yes Status: Acute Plan to address problem: Hyperkalemia in the setting of MARCO ANTONIO. Resolved now. (3) Hypotension Current Visit: Yes Status: Acute Qualifiers: Hypotension type: unspecified hypotension type Trimester: T Qualified Code(s): I95.9 - Hypotension, unspecified Plan to address problem: BP is better. (4) Hyponatremia Current Visit: Yes Status: Acute Plan to address problem: Secondary to HCTZ. Improved. Subjective Date of service: 09/07/17 Interval history: Patient is feeling better. Objective - Vital Signs Vital signs: Vital Signs - 12hr 09/06/17 09/06/17 09/06/17 22:00 22:46 22:51 Temperature 98.2 F 98.6 F Pulse Rate 65 109 H Pulse Rate [ 64 Left] Respiratory 18 18 Rate Blood Pressure 128/67 109/40 Blood Pressure [Left] O2 Sat by Pulse 97 98 94 Oximetry 09/06/17 09/07/17 23:11 07:00 Temperature 98.4 F Pulse Rate 64 60 Pulse Rate [ Left] Respiratory 18 Rate Blood Pressure 128/67 Blood Pressure 107/64 [Left] O2 Sat by Pulse 94 Oximetry - General Appearance General appearance: well-developed, well-nourished, appears stated age, other ( no distress) EENT: ATNC, PERRL, mucous membranes moist, hearing intact, vision intact Neck: supple Respiratory: Present: Clear to Ascultation Cardiology: regular, S1S2, no murmurs Gastrointestinal: normoactive bowel sounds, no tenderness, no distended Integumentary: no rash, warm and dry Neurologic: no focal deficit, no asterixis, alert and oriented x3 Musculoskeletal: other (no edema) Psychiatric: mood/affect appropriate, cooperative - Lab 09/04/17 15:20 09/07/17 06:54 Most recent lab results Calcium 8.9 mg/dL (8.4-10.2) 09/07/17 06:54 Urine Creatinine 215.8 mg/dL (0.1-20.0) H 09/04/17 20:15 Urine Sodium 99 mEq/L 09/04/17 20:15
[2017-09-07] MEDS: NOVOLOG SUB-Q SCH ×2 (07:44→11:51)
[2017-09-07] MEDS: AMARYL PO SCH (08:00)
[2017-09-07] MEDS: ASPIRIN PO SCH (09:16)
[2017-09-07] MEDS: NACL 0.45% 1000 ML 1,000 ML IV SCH (09:16)
[2017-09-07] MEDS: HEPARIN SUB-Q SCH (09:17)
[2017-09-07] MEDS: COREG PO SCH (09:17)
--- NOTE | 2017-09-07 09:37 | Gastroenterology Progress Note ---
Assessment and Plan GI: stable overnight, tolerating po - BS benign - diet as tolerated - ok to d/c from GI standpoint, will sign off, call if needed Subjective Date of service: 09/07/17 Interval history: - pt reports doing well, tolerating po Objective - Constitutional Vitals: Temp Pulse Resp BP Pulse Ox 98.4 F 60 18 107/64 94 09/07/17 07:00 09/07/17 07:00 09/07/17 07:00 09/07/17 07:00 09/07/17 07:00 General appearance: no acute distress - Respiratory Respiratory: bilateral: CTA - Cardiovascular Rhythm: regular Heart Sounds: Present: S1 & S2 - Gastrointestinal General gastrointestinal: Present: soft, non-tender - Labs CBC & Chem 7: 09/04/17 15:20 09/07/17 06:54 Labs: Laboratory Results - last 24 hr 09/06/17 09/06/17 09/06/17 11:18 11:29 16:43 Sodium 137 Potassium 4.9 Chloride 98.1 Carbon Dioxide 24 Anion Gap 20 BUN 15 Creatinine 0.7 L Estimated GFR > 60 BUN/Creatinine Ratio 21 Glucose 138 H POC Glucose 132 H 103 Calcium 9.6 Total Bilirubin 1.40 H AST 27 ALT 26 Alkaline Phosphatase 66 Total Creatine Kinase Total Protein 7.0 Albumin 4.1 Albumin/Globulin Ratio 1.4 Urine Color Urine Turbidity Urine pH Ur Specific Sharon Urine Protein Urine Glucose (UA) Urine Ketones Urine Blood Urine Nitrite Urine Bilirubin Urine Urobilinogen Ur Leukocyte Esterase Urine WBC (Auto) Urine RBC (Auto) Urine Mucus 09/06/17 09/06/17 09/07/17 22:39 23:15 06:19 Sodium Potassium Chloride Carbon Dioxide Anion Gap BUN Creatinine Estimated GFR BUN/Creatinine Ratio Glucose POC Glucose 114 H 119 H Calcium Total Bilirubin AST ALT Alkaline Phosphatase Total Creatine Kinase Total Protein Albumin Albumin/Globulin Ratio Urine Color Yellow Urine Turbidity Clear Urine pH 6.0 Ur Specific Sharon 1.014 Urine Protein <15 mg/dl Urine Glucose (UA) >=500 Urine Ketones Neg Urine Blood Neg Urine Nitrite Neg Urine Bilirubin Neg Urine Urobilinogen < 2.0 Ur Leukocyte Esterase Neg Urine WBC (Auto) < 1.0 Urine RBC (Auto) 2.0 Urine Mucus Few 09/07/17 06:54 Sodium 134 L Potassium 4.0 Chloride 97.4 L Carbon Dioxide 25 Anion Gap 16 BUN 15 Creatinine 0.8 Estimated GFR > 60 BUN/Creatinine Ratio 19 Glucose 129 H POC Glucose Calcium 8.9 Total Bilirubin AST ALT Alkaline Phosphatase Total Creatine Kinase 62 Total Protein Albumin Albumin/Globulin Ratio Urine Color Urine Turbidity Urine pH Ur Specific Sharon Urine Protein Urine Glucose (UA) Urine Ketones Urine Blood Urine Nitrite Urine Bilirubin Urine Urobilinogen Ur Leukocyte Esterase Urine WBC (Auto) Urine RBC (Auto) Urine Mucus
--- NOTE | 2017-09-07 10:51 | Discharge Summary ---
Providers - Providers Date of Admission: 09/04/17 19:25 Date of discharge: 09/07/17 Attending physician: YESSI YEUNG MD 09/05/17 12:50 Speech Therapy Evaluation and Treat [CONS] Routine Reason For Exam: dysphagia, hx of cva 09/05/17 14:50 Physical Therapy Evaluation and Treat [CONS] Routine Comment: Reason For Exam: generalized weakness Primary care physician: STATISTICAL CLERK Hospitalization Reason for admission: Dizziness, hypotension, odynophagia Condition: Stable Pertinent studies: CT head chronic ischemic infarcts MBS significant for GERD, no stricture or other abnormality Hospital course: History of present illness: 61 YO Male with HTN, DM, CVA, Asthma presents to ED for evaluation. Pt states that he has experienced lightheadedness and weakness for the past 1 day with persistent symptoms. Patient seen by primary care doctor who sent him to the ER. Pt states that it hurts to swallow food, and he feels like "food gets stuck " and comes back up. Pt denies fever, chills, CP, Palpitations, NVD, difficulty breathing, Syncope, productive cough recent ill contacts. Patient seen and evaluated in ED and found to be hypotensive with renal failure. Pt treated with IVF resuscitation therapy. Patient was admitted with the impression of hypotension, ARF, odynophagia patient was treated with IV fluids the hyptension and acute renal failure resolved. GI was consulted for odynophagia did MBS which showed only reflux, no stricture. The odynophagia resolved and patient was felling clinically well. His BP medications were adjusted and discharged home in a stable condition. Disposition: - TO HOME OR SELFCARE Time spent for discharge: 31 minutes - Discharge Diagnoses (1) ARF (acute renal failure) Status: Acute Qualifiers: Acute renal failure type: A (2) Hyperkalemia Status: Acute (3) Hyperkalemia Status: Acute (4) Hypotension Status: Acute Qualifiers: Hypotension type: unspecified hypotension type Trimester: T Qualified Code(s): I95.9 - Hypotension, unspecified (5) Odynophagia Status: Acute (6) Hyperglycemia Status: Acute Core Measure Documentation - Palliative Care Palliative Care/ Comfort Measures: Not Applicable - Core Measures Any of the following diagnoses?: none Exam - Physical Exam Narrative exam: Not in cardiopulmonary distress. The patient appeared well nourished and normally developed. Vital signs as documented. Head exam is unremarkable. No scleral icterus . Neck is without jugular venous distension, thyromegaly, or carotid bruits. Lungs are clear to auscultation. Cardiac exam reveals regular rate and Rhythm. First and second heart sounds normal. No murmurs, rubs or gallops. Abdominal exam reveals normal bowel sounds, no masses, no organomegaly and no aortic enlargement. Extremities are nonedematous and both femoral and pedal pulses are normal. 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 No focal weakness. - Constitutional Vitals: Temp Pulse Resp BP Pulse Ox 98.4 F 60 18 107/64 94 09/07/17 07:00 09/07/17 07:00 09/07/17 07:00 09/07/17 07:00 09/07/17 07:00 Plan Activity: no restrictions Weight Bearing Status: Full Weight Bearing Diet: low cholesterol, low salt, diabetic Follow up with: PRIMARY CARE,MD [Primary Care Provider] - 3-5 Days Prescriptions: Insulin Detemir [Levemir] 15 units SUB-Q QHS 30 Days Sertraline [Zoloft] 50 mg PO QHS #30 tablet Carvedilol [Coreg] 12.5 mg PO BID #60 tablet Glimepiride [Amaryl] 4 mg PO QDDIAB #60 tablet Lisinopril [Zestril TAB] 5 mg PO QDAY #30 tablet metFORMIN [Glucophage] 500 mg PO BIDDIAB #60 tablet Syrge-Ndl,Ins 0.3 ml Half Fernando [Insulin Syringe] 1 each MC DAILY 30 Days
[2017-09-07 10:54] VITALS: BP 105/59
== END 2017-09-07 15:44 | disposition home or self-care (01) | DRG 314 ==
LOC: ED 14:16 → 3A 19:25
PROVIDERS: ADMIT Internal Medicine; ATTEND Internal Medicine
DX: I95.9 Hypotension, unspecified (principal); N17.0 Acute kidney failure with tubular necrosis; E87.1 Hypo-osmolality and hyponatremia; E87.5 Hyperkalemia; R13.10 Dysphagia, unspecified; Z86.73 Personal history of transient ischemic attack (TIA), and cerebral infarction without residual deficits; E11.9 Type 2 diabetes mellitus without complications; Z79.4 Long term (current) use of insulin; I10 Essential (primary) hypertension; Z79.82 Long term (current) use of aspirin; J45.909 Unspecified asthma, uncomplicated; T50.2X5A Adverse effect of carbonic-anhydrase inhibitors, benzothiadiazides and other diuretics, initial encounter
CPT/HCPCS: 36415; 70450; 71020; 74220; 76770; 80048; 80053; 81001; 82550; 82570; 82962; 84300; 84439; 84443; 84484; 85025; 85610; 85730; 93005; 93010; 96360; 96361; J1644; J1815; J1818; J7030

== ENCOUNTER 2018-07-21 20:18 | Emergency (ER) | payer OTHER, MEDICAID ==
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
[2018-07-22 00:30] VITALS: BP 176/121
[2018-07-22] MEDS ORDERED: MOTRIN PO ONE (00:30)
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
== END 2018-07-22 00:41 | disposition home or self-care (01) ==
LOC: ED 20:18
DX: I10 Essential (primary) hypertension (principal); M25.561 Pain in right knee; M25.511 Pain in right shoulder; E11.9 Type 2 diabetes mellitus without complications; Z86.73 Personal history of transient ischemic attack (TIA), and cerebral infarction without residual deficits; Z79.82 Long term (current) use of aspirin; Z79.01 Long term (current) use of anticoagulants; Z79.899 Other long term (current) drug therapy; V49.19XA Passenger injured in collision with other motor vehicles in nontraffic accident, initial encounter; Y93.89 Activity, other specified; Y99.8 Other external cause status; Y92.488 Other paved roadways as the place of occurrence of the external cause

== ENCOUNTER 2019-07-19 11:44 | Emergency (ER) | payer MEDICAID ==
--- NOTE | 2019-07-19 12:02 | Event Note ---
ED Screening Note ED Screening Note: sent by Dr Hart his bp increased despite taking his meds co headache pmh htn cva hpld no CO cig no etoh no drugs no psh rotator cuff This initial assessment/diagnostic orders/clinical plan/treatment(s) is/are subject to change based on patients health status, clinical progression and re- assessment by fellow clinical providers in the ED. Further treatment and workup at subsequent clinical providers discretion. Patient/guardian urged not to elope from the ED as their condition may be serious if not clinically assessed and managed. Initial orders include: ekg labs
[2019-07-19 12:45] LABS: Hematocrit 49.7 % (35.5-45.6); Hemoglobin 16.8 gm/dl (11.8-15.2); Mean Corpuscular HGB Conc 34 % (32-34); Mean Corpuscular Volume 89 fl (84-94); Red Blood Count 5.59 M/mm3 (3.65-5.03); Red Cell Distribution Width 12.9 % (13.2-15.2)
[2019-07-19 13:01] LABS: Platelet Count 245 K/mm3 (140-440)
[2019-07-19 13:02] LABS: INR 1.05 (0.87-1.13)
[2019-07-19] MEDS ORDERED: TYLENOL PO ONE (13:02)
[2019-07-19 13:03] LABS: Partial Thromboplastin Time 39.6 Sec. (24.2-36.6)
[2019-07-19 13:22] LABS: Bilirubin,Urine NEG (Negative); Blood,Urine NEG (Negative); Color,Urine Straw (Yellow); Protein,Urine <15 mg/dL mg/dL (Negative); Urobilinogen,Urine < 2.0 mg/dL (<2.0); WBC,Urine < 1.0 /HPF (0.0-6.0)
--- NOTE | 2019-07-19 13:45 | Emergency Department Report ---
ED General Adult HPI - General Chief complaint: High BP Stated complaint: HIGH BP Time Seen by Provider: 07/19/19 12:00 Source: patient, RN notes reviewed, old records reviewed Mode of arrival: Ambulatory Limitations: No Limitations - History of Present Illness Initial comments: This is a 63-year-old gentleman. This patient is not known to this provider previously. His past medical history includes reported stroke, diabetes, hypertension, asthma. His primary care doctor is Dr. Hart The patient states he is taking blood pressure medications, but he does not know the name of the medications that he is taking. In the past, he has been on Coumadin therapy. The patient is not sure if he is taking Coumadin currently. He doesn't know why he he was on Coumadin. He is sent to the ER for evaluation of hypertension. The patient thinks he is taking his blood pressure medications. He does not know the names of his blood pressure medications. He reports that he feels very anxious as his blood pressure was elevated, and his primary care doctor sent him to the ER for elevated blood pressure. He endorses right-sided headache, secondary to anxiety. The headache itself is not sudden or thunderclap in nature. The headache did not which maximal intensity within an hour. It is not the most intense headache of his life. He denies other pain . He denies other symptoms. The headache is mostly resolved at this point time. The patient dorsa's intermittent headaches. Apparently, the patient lives with a family member. -: Gradual Location: head Consistency: now resolved Improves with: other Worsens with: other - Related Data Home Medications Medication Instructions Recorded Confirmed Last Taken Lisinopril [Zestril TAB] 20 mg PO BID 07/19/19 07/19/19 07/19/19 Simvastatin 20 mg PO BID 07/19/19 07/19/19 07/19/19 hydrALAZINE [Apresoline TAB] 100 mg PO TID 07/19/19 07/19/19 07/19/19 Previous Rx's Medication Instructions Recorded Last Taken Type Warfarin [Coumadin] 2 mg PO DAILY #30 tablet 08/30/17 07/19/19 Rx Carvedilol [Coreg] 12.5 mg PO BID #60 tablet 09/07/17 07/19/19 Rx Detemir (Nf) [Levemir (Nf)] 15 units SUB-Q QHS 30 Days units 09/07/17 07/19/19 Rx Sertraline [Zoloft] 50 mg PO QHS #30 tablet 09/07/17 07/19/19 Rx Syrge-Ndl,Ins 0.3 ml Half Fernando 1 each MC DAILY 30 Days disp.syrin 09/07/17 07/19/19 Rx [Veo Insulin Syringe] metFORMIN [Glucophage] 500 mg PO BIDDIAB #60 tablet 09/07/17 07/19/19 Rx Allergies Allergy/AdvReac Type Severity Reaction Status Date / Time No Known Allergies Allergy Verified 07/24/17 12:17 ED Review of Systems ROS: Stated complaint: HIGH BP Other details as noted in HPI Comment: All other systems reviewed and negative Neurological: headache Psychiatric: anxiety ED Past Medical Hx - Past Medical History Hx Hypertension: Yes Hx CVA: Yes (x2) Hx Heart Attack/AMI: No Hx Congestive Heart Failure: No Hx Diabetes: Yes Hx GERD: No Hx Liver Disease: No Hx Renal Disease: No Hx Seizures: No Hx Asthma: No Hx COPD: No Hx HIV: No - Surgical History Additional Surgical History: R Rotator cuff - Social History Smoking Status: Never Smoker Substance Use Type: None - Medications Home Medications: Home Medications Medication Instructions Recorded Confirmed Last Taken Type Warfarin [Coumadin] 2 mg PO DAILY #30 tablet 08/30/17 07/19/19 07/19/19 Rx Carvedilol [Coreg] 12.5 mg PO BID #60 tablet 09/07/17 07/19/19 07/19/19 Rx Detemir (Nf) [Levemir (Nf)] 15 units SUB-Q QHS 30 Days units 09/07/17 07/19/19 07/19/19 Rx Sertraline [Zoloft] 50 mg PO QHS #30 tablet 09/07/17 07/19/19 07/19/19 Rx Syrge-Ndl,Ins 0.3 ml Half Fernando 1 each MC DAILY 30 Days disp.syrin 09/07/17 07/19/19 07/19/19 Rx [Veo Insulin Syringe] metFORMIN [Glucophage] 500 mg PO BIDDIAB #60 tablet 09/07/17 07/19/19 07/19/19 Rx Lisinopril [Zestril TAB] 20 mg PO BID 0807/19/19 07/19/19 History Simvastatin 20 mg PO BID 07/19/19 07/19/19 07/19/19 History hydrALAZINE [Apresoline TAB] 100 mg PO TID 07/19/19 07/19/19 07/19/19 History ED Physical Exam - General Limitations: No Limitations General appearance: alert, in no apparent distress - Head Head exam: Present: atraumatic, normocephalic - Eye Eye exam: Present: normal appearance, EOMI, other (visual acuity intact to f den counting and color perception at close distance.). Absent: nystagmus - ENT ENT exam: Present: normal exam, normal orophraynx, mucous membranes moist, norm al external ear exam - Neck Neck exam: Present: normal inspection, full ROM. Absent: tenderness, meningismus - Respiratory Respiratory exam: Present: normal lung sounds bilaterally. Absent: respiratory distress - Cardiovascular Cardiovascular Exam: Present: regular rate, normal rhythm, normal heart sounds. Absent: bradycardia, tachycardia, irregular rhythm, systolic murmur, diastolic murmur, rubs, gallop - GI/Abdominal GI/Abdominal exam: Present: soft. Absent: distended, tenderness, guarding, rebound, rigid, pulsatile mass - Rectal Rectal exam: Present: deferred - Extremities Exam Extremities exam: Present: normal inspection, full ROM, other (2+ pulses noted in the bilateral upper, lower extremities. There is no long bony tenderness. The pelvis is stable. Muscular compartments are soft.). Absent: pedal edema, joint swelling, calf tenderness - Back Exam Back exam: Present: normal inspection, full ROM. Absent: tenderness, CVA tenderness (L), paraspinal tenderness, vertebral tenderness - Neurological Exam Neurological exam: Present: alert, normal gait, other (there is no facial droop. The tongue is midline. The extraocular movements are intact bilaterally. 5/ 5 strength bilateral upper, lower extremities. Sensation intact to light touch bilateral upper, lower extremities bilaterally. Sensation is intact to light touch in the bilateral V1, V2, V3 distribution.). Absent: motor sensory deficit - Psychiatric Psychiatric exam: Present: anxious - Skin Skin exam: Present: warm, dry, intact, normal color. Absent: rash ED Course Vital Signs 07/19/19 07/19/19 07/19/19 12:00 12:45 13:00 Temperature 97.8 F Pulse Rate 77 68 62 Respiratory 18 21 25 H Rate Blood Pressure 230/135 172/94 167/94 Blood Pressure [Right] O2 Sat by Pulse 97 97 Oximetry 07/19/19 07/19/19 07/19/19 13:31 14:00 14:31 Temperature Pulse Rate 65 67 62 Respiratory 21 22 23 Rate Blood Pressure 161/96 176/112 168/86 Blood Pressure [Right] O2 Sat by Pulse 91 95 90 Oximetry 07/19/19 07/19/19 07/19/19 14:46 15:01 15:39 Temperature Pulse Rate 65 68 Respiratory 17 23 Rate Blood Pressure 174/108 174/108 Blood Pressure 163/87 [Right] O2 Sat by Pulse 100 92 89 Oximetry 07/19/19 07/19/19 16:01 16:31 Temperature Pulse Rate 68 66 Respiratory 22 20 Rate Blood Pressure 189/100 181/95 Blood Pressure [Right] O2 Sat by Pulse 91 92 Oximetry - Reevaluation(s) Reevaluation #1: 07/19/19 13:42 Differential diagnosis, including but not limited to: Hypertension, intracranial hemorrhage, migraine headache, tension headache, cluster headache, a coat syndrome, anxiety, renal insufficiency Assessment and plan: 63-year-old gentleman sent to the ER primarily because of hypertension. His hypertension is improving on its own without any need for antihypertensive therapy in the ER. He is pleasant, calm and cooperative, and walks with a steady gait. He has a nonfocal motor examination. Incidentally, INR found to be within normal limits, suggesting that patient may not currently on Coumadin therapy. Patient's headache by history does not appear to be consistent with subarachnoid hemorrhage, however, given history of elevated blood pressure and history of Coumadin use, we will obtain noncontrast CT scan of the brain. We will treat his symptoms. Reevaluation #2: 07/19/19 15:40 care will be transferred to Dr Zeyad Mendoza to follow up on ct head and if negative, discharge for outpatient follow up ED Medical Decision Making - Lab Data Result diagrams: 07/19/19 12:22 07/19/19 12:22 Vital Signs 07/19/19 07/19/19 07/19/19 12:00 12:45 13:00 Temperature 97.8 F Pulse Rate 77 68 62 Respiratory 18 21 25 H Rate Blood Pressure 230/135 172/94 167/94 O2 Sat by Pulse 97 97 Oximetry Lab Results 07/19/19 07/19/19 07/19/19 Range/Units 12:22 12:40 13:09 WBC 6.0 (4.5-11.0) K/mm3 RBC 5.59 H (3.65-5.03) M/mm3 Hgb 16.8 H (11.8-15.2) gm/dl Hct 49.7 H (35.5-45.6) % MCV 89 (84-94) fl MCH 30 (28-32) pg MCHC 34 (32-34) % RDW 12.9 L (13.2-15.2) % Plt Count 245 (140-440) K/mm3 PT 13.4 (12.2-14.9) Sec. INR 1.05 (0.87-1.13) APTT 39.6 H (24.2-36.6) Sec. Urine Color Straw (Yellow) Urine Turbidity Clear (Clear) Urine pH 6.0 (5.0-7.0) Ur Specific [place] 1.009 (1.003-1.030) Urine Protein <15 mg/dl (Negative) mg/dL Urine Glucose (UA) Neg (Negative) mg/dL Urine Ketones Neg (Negative) mg/dL Urine Blood Neg (Negative) Urine Nitrite Neg (Negative) Urine Bilirubin Neg (Negative) Urine Urobilinogen < 2.0 (<2.0) mg/dL Ur Leukocyte Esterase Neg (Negative) Urine WBC (Auto) < 1.0 (0.0-6.0) /HPF Urine RBC (Auto) 1.0 (0.0-6.0) /HPF - Radiology Data Radiology results: report reviewed, image reviewed ct head negative for acute findings Critical care attestation.: If time is entered above; I have spent that time in minutes in the direct care of this critically ill patient, excluding procedure time. ED Disposition Clinical Impression: Elevated blood pressure reading, History of headache Disposition: DC-01 TO HOME OR SELFCARE Is pt being admited?: No Does the pt Need Aspirin: No Condition: Stable Additional Instructions: Continue outpatient medications. Patient may take vore-[id number] medication, such as Tylenol or Motrin as needed for headache if it recurs. The patient sh ould follow-up with his primary care doctor within the next 7-10 days. Patient is found to have hypertension and elevated blood pressure in the ER, which over long-term. Of time may lead to stroke disability, paralysis, loss of quality of life. Patient may need to have his blood pressure medications adjusted by his primary care doctor. In addition, the patient needs to follow up with his prima ry care doctor to assess need for long-term anticoagulation on Coumadin. In the ER, the patient was found to have a normal INR, which reflects that the patient is not currently taking Coumadin therapy. The patient is supposed to be on Coumadin therapy, and he is not taking his Coumadin medication, the patient may be at risk for stroke, or other complications. Therefore, it is very important to follow up with your outpatient primary care doctor to clarify need for long- term anticoagulation. Please return to the emergency room right away was new, worsened or different symptoms, or symptoms not present on the initial emergency room evaluation. Referrals: [facility] [Provider Group] - 3-5 Days [facility] [Provider Group] - 3-5 Days
[2019-07-19 14:31] LABS: Alanine Aminotransferase 23 units/L (7-56); Albumin 4.5 g/dL (3.9-5); BUN/Creatinine Ratio 14; Blood Urea Nitrogen 11 mg/dL (9-20); Calcium 10.1 mg/dL (8.4-10.2); Hemolysis Index 19
--- NOTE | 2019-07-19 16:10 | Cat Scan Report ---
CT head/brain wo con INDICATION: Headache and hypertension. TECHNIQUE: Routine CT head without contrast. All CT scans at this location are performed using CT dos e reduction for ALARA by means of automated exposure control. COMPARISON: Previous head CT on 09/04/2017. FINDINGS: BRAIN / INTRACRANIAL CONTENTS: No acute hemorrhage, mass effect, midline shift, or hydrocephalus. No appreciable acute large territorial or lacunar infarct. 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 Remaining ventricular and cisternal size appears appropriate for age. ORBITS: No significant abnormality of visualized orbits. SINUSES / MASTOIDS: No significant abnormality of visualized sinuses and mastoid air cells. ADDITIONAL FINDINGS: None. IMPRESSION: 1. No acute intracranial abnormality. 2. Stable chronic left LEELA territory infarct. Signer Name: Gary Michel MD Signed: 07/19/2019 4:06 PM Workstation Name: [id number]
[2019-07-19 16:39] VITALS: BP 181/95
== END 2019-07-19 16:40 | disposition home or self-care (01) ==
LOC: ED 11:44
DX: I10 Essential (primary) hypertension (principal); F41.9 Anxiety disorder, unspecified; E11.9 Type 2 diabetes mellitus without complications; Z79.84 Long term (current) use of oral hypoglycemic drugs; Z86.73 Personal history of transient ischemic attack (TIA), and cerebral infarction without residual deficits; Z98.890 Other specified postprocedural states; Z79.899 Other long term (current) drug therapy
CPT/HCPCS: 36415; 70450; 80053; 81001; 82550; 83735; 85027; 85610; 85730; 93005; 93010

== ENCOUNTER → 2022-04-21 | Emergency (ER) | payer MEDICAID, OTHER ==
[2022-04-21 04:45] VITALS: BP 213/124
--- NOTE | 2022-04-21 19:57 | Emergency Department Report ---
ED ENT HPI - General Chief complaint: Earache Stated complaint: BUG IN RIGHT EAR Source: patient Mode of arrival: Ambulatory Limitations: No Limitations - History of Present Illness Initial comments: 66-year-old black male presents to the emergency department for evaluation of right ear pain. He states that it felt like a bug was crawling around in his right ear since this morning. He states that he can feel it buzzing. complaint: ear pain -: Sudden, hour(s) Location: R ear Severity: mild Severity scale (0 -10): 2 Quality: aching Consistency: intermittent Associated Symptoms: denies: fever, sore throat, tinnitus, discharge from ear - Related Data Home Medications Medication Instructions Recorded Confirmed Last Taken Simvastatin 20 mg PO BID 07/19/19 07/19/19 07/19/19 hydrALAZINE [Apresoline TAB] 100 mg PO TID 07/19/19 07/19/19 07/19/19 lisinopriL [Zestril TAB] 20 mg PO BID 07/19/19 07/19/19 07/19/19 Previous Rx's Medication Instructions Recorded Last Taken Type Warfarin [Coumadin] 2 mg PO DAILY #30 tablet 08/30/17 07/19/19 Rx Detemir (Nf) [Levemir (Nf)] 15 units SUB-Q QHS 30 Days units 09/07/17 07/19/19 Rx Sertraline [Zoloft] 50 mg PO QHS #30 tablet 09/07/17 07/19/19 Rx Syrge-Ndl,Ins 0.3 ml Half Fernando 1 each MC DAILY 30 Days disp.syrin 09/07/17 07/19/19 Rx [Veo Insulin Syringe] carvediloL [Coreg] 12.5 mg PO BID #60 tablet 09/07/17 07/19/19 Rx metFORMIN [Glucophage] 500 mg PO BIDDIAB #60 tablet 09/07/17 07/19/19 Rx Allergies Allergy/AdvReac Type Severity Reaction Status Date / Time No Known Allergies Allergy Verified 07/24/17 12:17 ED Dental HPI - General Chief complaint: Earache Stated complaint: BUG IN RIGHT EAR Source: patient Mode of arrival: Ambulatory Limitations: No Limitations - Related Data Home Medications Medication Instructions Recorded Confirmed Last Taken Simvastatin 20 mg PO BID 07/19/19 07/19/19 07/19/19 hydrALAZINE [Apresoline TAB] 100 mg PO TID 07/19/19 07/19/19 07/19/19 lisinopriL [Zestril TAB] 20 mg PO BID 07/19/19 07/19/19 07/19/19 Previous Rx's Medication Instructions Recorded Last Taken Type Warfarin [Coumadin] 2 mg PO DAILY #30 tablet 08/30/17 07/19/19 Rx Detemir (Nf) [Levemir (Nf)] 15 units SUB-Q QHS 30 Days units 09/07/17 07/19/19 Rx Sertraline [Zoloft] 50 mg PO QHS #30 tablet 09/07/17 07/19/19 Rx Syrge-Ndl,Ins 0.3 ml Half Fernando 1 each MC DAILY 30 Days disp.syrin 09/07/17 07/19/19 Rx [Veo Insulin Syringe] carvediloL [Coreg] 12.5 mg PO BID #60 tablet 09/07/17 07/19/19 Rx metFORMIN [Glucophage] 500 mg PO BIDDIAB #60 tablet 09/07/17 07/19/19 Rx Allergies Allergy/AdvReac Type Severity Reaction Status Date / Time No Known Allergies Allergy Verified 07/24/17 12:17 ED Review of Systems ROS: Stated complaint: BUG IN RIGHT EAR Other details as noted in HPI Comment: All other systems reviewed and negative Constitutional: denies: fever ENT: ear pain Respiratory: denies: shortness of breath Neurological: denies: headache ED Past Medical Hx - Past Medical History Hx Hypertension: Yes Hx CVA: Yes (x2) Hx Heart Attack/AMI: No Hx Congestive Heart Failure: No Hx Diabetes: Yes Hx GERD: No Hx Liver Disease: No Hx Renal Disease: No Hx Seizures: No Hx Asthma: No Hx COPD: No Hx HIV: No - Surgical History Additional Surgical History: R Rotator cuff - Social History Smoking Status: Never Smoker Substance Use Type: None - Medications Home Medications: Home Medications Medication Instructions Recorded Confirmed Last Taken Type Warfarin [Coumadin] 2 mg PO DAILY #30 tablet 08/30/17 07/19/19 07/19/19 Rx Detemir (Nf) [Levemir (Nf)] 15 units SUB-Q QHS 30 Days units 09/07/17 07/19/19 07/19/19 Rx Sertraline [Zoloft] 50 mg PO QHS #30 tablet 09/07/17 07/19/19 07/19/19 Rx Syrge-Ndl,Ins 0.3 ml Half Fernando 1 each MC DAILY 30 Days disp.syrin 09/07/17 07/19/19 07/19/19 Rx [Veo Insulin Syringe] carvediloL [Coreg] 12.5 mg PO BID #60 tablet 09/07/17 07/19/19 07/19/19 Rx metFORMIN [Glucophage] 500 mg PO BIDDIAB #60 tablet 09/07/17 07/19/19 07/19/19 Rx Simvastatin 20 mg PO BID 07/19/19 07/19/19 07/19/19 History hydrALAZINE [Apresoline TAB] 100 mg PO TID 07/19/19 07/19/19 07/19/19 History lisinopriL [Zestril TAB] 20 mg PO BID 07/19/19 07/19/19 07/19/19 History ED Physical Exam - General Limitations: No Limitations General appearance: alert, in no apparent distress - Head Head exam: Present: atraumatic, normocephalic - ENT ENT exam: Present: TM's normal bilaterally (No foreign body noted to right ear canal.) - Expanded ENT Exam Expanded Ear exam: Present: normal external inspection - Neck Neck exam: Present: normal inspection. Absent: lymphadenopathy - Respiratory Respiratory exam: Absent: respiratory distress - Cardiovascular Cardiovascular Exam: Present: regular rate - GI/Abdominal GI/Abdominal exam: Absent: distended - Extremities Exam Extremities exam: Present: normal inspection - Back Exam Back exam: Present: normal inspection - Neurological Exam Neurological exam: Present: alert, oriented X3 - Psychiatric Psychiatric exam: Present: normal affect, normal mood - Skin Skin exam: Present: warm, dry, intact ED Course Vital Signs 04/21/22 04:43 Temperature 98.4 F Pulse Rate 87 Respiratory 16 Rate Blood Pressure 213/124 O2 Sat by Pulse 96 Oximetry ED Medical Decision Making - Medical Decision Making 66-year-old black male presents to the emergency department for evaluation of right ear pain. He states that it felt like a bug was crawling around in his right ear since this morning. He states that he can feel it buzzing. No foreign body noted to right ear canal. Patient states that he does not hear buzzing in his ear anymore. He is advised to follow-up with his primary care provider for further evaluation and management and return to the emergency department as needed. Critical care attestation.: If time is entered above; I have spent that time in minutes in the direct care of this critically ill patient, excluding procedure time. ED Disposition Clinical Impression: Right ear pain Disposition: 01 HOME / SELF CARE / HOMELESS Is pt being admited?: No Does the pt Need Aspirin: No Condition: Undetermined Instructions: Earache, Adult Additional Instructions: Follow-up with primary care provider as needed. Turn to the emergency department as needed. Referrals: PRIMARY [facility] [Primary Care Provider] - 3-5 Days Time of Disposition: 19:59
== END | disposition home or self-care (01) ==
LOC: ED 03:57
DX: H92.01 Otalgia, right ear (principal); I10 Essential (primary) hypertension; Z86.73 Personal history of transient ischemic attack (TIA), and cerebral infarction without residual deficits; E11.9 Type 2 diabetes mellitus without complications; Z79.899 Other long term (current) drug therapy
CPT/HCPCS: 99281